=== PATIENT | female | born 1960 | race Two or more races ===

== ENCOUNTER 2016-11-13 15:54 | Emergency (ER) | payer OTHER, MEDICAID ==
[~2016-11-13] VITALS: Ht 167.6 cm; Wt 110.7 kg
[~2016-11-13 15:54] MED LIST: ASPI81CH43 PO; ATOR20TA PO; CARV6.2551 PO; FURO40TA4 PO; GABA-339 PO; GLIM1TAB2 PO; IPRA0.035; LOSA100T27 PO; MECL-87 PO; METF-314 PO; NITR0.4S29 SL; NOR5T PO; POTA10TA51 PO; TRAM50TA2 PO
[2016-11-13 18:24] VITALS: BP 115/88
== END 2016-11-13 19:50 | disposition home or self-care (01) ==
LOC: ER 16:22
DX: S66.912A Strain of unspecified muscle, fascia and tendon at wrist and hand level, left hand, initial encounter (principal); S66.911A Strain of unspecified muscle, fascia and tendon at wrist and hand level, right hand, initial encounter; S00.93XA Contusion of unspecified part of head, initial encounter; S80.02XA Contusion of left knee, initial encounter; S80.01XA Contusion of right knee, initial encounter; I11.0 Hypertensive heart disease with heart failure; I50.9 Heart failure, unspecified; E11.9 Type 2 diabetes mellitus without complications; E78.5 Hyperlipidemia, unspecified; M19.90 Unspecified osteoarthritis, unspecified site; W19.XXXA Unspecified fall, initial encounter; Y93.89 Activity, other specified; Y99.8 Other external cause status; Y92.59 Other trade areas as the place of occurrence of the external cause; Z79.82 Long term (current) use of aspirin; Z79.899 Other long term (current) drug therapy
CPT/HCPCS: 70450

== ENCOUNTER 2017-05-26 12:02 | Emergency (ER) | payer OTHER, MEDICAID ==
[~2017-05-26] VITALS: Ht 165.1 cm; Wt 112.5 kg
[~2017-05-26 12:02] MED LIST changes: +HYDR-4683 PO; -METF-314 PO; +METF-371 PO; -NOR5T PO
[2017-05-26 13:07] LABS: Basophils # (auto) 0.1 uL; Basophils % (auto) 1.4 % (0.0-2.0); Eosinophils # (auto) 0.3 uL; Eosinophils % (auto) 5.4 % (0.0-7.0); Hematocrit 29.9 % (36.0-46.0); Hemoglobin 9.9 g/dL (12.2-16.2); Lymphocytes # (auto) 1.4 uL; Lymphocytes % (auto) 24.2 % (10.0-50.0); Mean Corpuscular Hemoglobin 28.8 pg (28.0-32.0); Mean Corpuscular Hgb Conc. 33.2 g/dL (32.0-36.0); Mean Corpuscular Volume 86.8 fL (80.0-100.0); Monocytes # (auto) 0.5 uL; Monocytes % (auto) 9.4 % (0.0-12.0); Neutrophils # (auto) 3.4 uL; Neutrophils % (auto) 59.6 % (37.0-80.0); Platelet Count (auto) 158 10^3/uL (140-450); Red Blood Cells 3.44 10^6/uL (4.0-5.20); White Blood Cell 5.7 10^3/uL (4.4-10.8)
[2017-05-26 13:38] LABS: Albumin 1.5 g/dL (3.4-5.0); BUN/Creatinine Ratio 24.2; Bilirubin, Total 0.2 mg/dL (0.2-1.0); Calcium 8.1 mg/dL (8.5-10.1); Potassium 4.6 mmol/L (3.5-5.1); Total Protein 5.7 g/dL (6.4-8.2)
[2017-05-26] MEDS ORDERED: CLINDAMYCIN 600MG IV 50 ML IV ONE (16:15)
[2017-05-26] MEDS ORDERED: InsuLIN REG 1unit/0.01ml Soln (100units/ml) IV ONE (16:15)
[2017-05-26] MEDS ORDERED: cloNIDine HCL 0.1 MG TAB PO ONE (16:15)
[2017-05-26 19:45] VITALS: BP 181/101
== END 2017-05-26 21:02 | disposition home or self-care (01) ==
LOC: ER 12:02
DX: S91.302A Unspecified open wound, left foot, initial encounter (principal); I73.9 Peripheral vascular disease, unspecified; E11.22 Type 2 diabetes mellitus with diabetic chronic kidney disease; N18.4 Chronic kidney disease, stage 4 (severe); E11.65 Type 2 diabetes mellitus with hyperglycemia; I13.0 Hypertensive heart and chronic kidney disease with heart failure and stage 1 through stage 4 chronic kidney disease, or unspecified chronic kidney disease; I50.9 Heart failure, unspecified; M19.90 Unspecified osteoarthritis, unspecified site; E78.5 Hyperlipidemia, unspecified; Z90.49 Acquired absence of other specified parts of digestive tract; Z79.4 Long term (current) use of insulin; Z79.82 Long term (current) use of aspirin; I25.10 Atherosclerotic heart disease of native coronary artery without angina pectoris; X58.XXXA Exposure to other specified factors, initial encounter; Y93.89 Activity, other specified; Y92.89 Other specified places as the place of occurrence of the external cause; Y99.8 Other external cause status
CPT/HCPCS: 36415; 73630; 80053; 82962; 85025; 93926; 96365; 96366; 96375; 99285; J1815; J3490; J7030; 96361

== ENCOUNTER → 2023-05-21 | Outpatient (CLI) | payer OTHER, MEDICAID ==
[~2023-05-21] MED LIST changes: +GLIM-38 PO; -GLIM1TAB2 PO; -HYDR-4683 PO; +HYDR-4833 PO; -LOSA100T27 PO; +LOSA100T58 PO; -MECL-87 PO; +MECL1TAB32 PO
== END | disposition home or self-care (01) ==
LOC: RT 11:21
PROVIDERS: ATTEND Internal Medicine Pulmonary Disease
DX: J44.9 Chronic obstructive pulmonary disease, unspecified (principal); R06.00 Dyspnea, unspecified
CPT/HCPCS: 94060; 94727; 94729

== ENCOUNTER 2023-07-06 17:59 | Emergency (ER) | payer OTHER, MEDICAID ==
[~2023-07-06] VITALS: Ht 162.6 cm; Wt 113.5 kg
[2023-07-06 19:03] LABS: Basophils # (auto) 0.1 10 ^3/uL (0-0.2); Basophils % (auto) 0.8 % (0.0-2.0); Eosinophils # (auto) 0.4 10 ^3/uL (0-0.8); Eosinophils % (auto) 5.7 % (0.0-7.0); Hematocrit 35.2 % (36.0-46.0); Hemoglobin 11.1 g/dL (12.2-16.2); Lymphocytes # (auto) 0.9 10 ^3/uL (0.4-5.4); Lymphocytes % (auto) 11.7 % (10.0-50.0); Mean Corpuscular Hemoglobin 30.8 pg (28.0-32.0); Mean Corpuscular Hgb Conc. 31.6 g/dL (32.0-36.0); Mean Corpuscular Volume 97.4 fL (80.0-100.0); Monocytes # (auto) 0.7 10 ^3/uL (0-1.3); Monocytes % (auto) 8.9 % (0.0-12.0); Neutrophils # (auto) 5.4 10 ^3/uL (1.6-8.6); Neutrophils % (auto) 72.9 % (37.0-80.0); Nucleated Red Blood Cells % 0.2 %; Red Blood Cells 3.62 10^6/uL (4.0-5.20); Red Cell Distribution Width 17.3 % (11.8-14.3); White Blood Cell 7.4 10^3/uL (4.4-10.8)
[2023-07-06 19:21] LABS: Alanine Aminotransferase 14 U/L (7-40); Albumin 4.2 g/dL (3.2-4.8); Alkaline Phosphatase 256 U/L (46-116); Anion Gap 9 (5-15); Aspartate Aminotransferase < 8 U/L (13-40); BUN/Creatinine Ratio 5.3 (10.0-20.0); Blood Urea Nitrogen 26 mg/dL (9-23); Calcium 7.7 mg/dL (8.7-10.4); Carbon Dioxide 26 mmol/L (20-30); Chloride 103 mmol/L (98-107); Glucose 127 mg/dL (74-106); Potassium 4.6 mmol/L (3.5-5.1); Sodium 138 mmol/L (136-145)
[2023-07-06 19:22] LABS: Bilirubin, Total 0.3 mg/dL (0.2-1.0); Total Protein 7.1 g/dL (5.7-8.2)
[2023-07-06 20:48] LABS: Erythrocyte Sedimentation Rate 33 mm/hr (0-20)
[2023-07-06] MEDS ORDERED: CEPH250C PO (21:38)
[2023-07-06] MEDS ORDERED: AML5T PO ×2 (21:48)
[2023-07-06 22:37] VITALS: BP 159/69; PULSE 73; RESP 18; TEMP 97.9; O2SAT 96
== END 2023-07-06 22:41 | disposition home or self-care (01) ==
LOC: ER 17:59
DX: S90.122A Contusion of left lesser toe(s) without damage to nail, initial encounter (principal); R23.4 Changes in skin texture; E11.22 Type 2 diabetes mellitus with diabetic chronic kidney disease; I13.2 Hypertensive heart and chronic kidney disease with heart failure and with stage 5 chronic kidney disease, or end stage renal disease; I50.9 Heart failure, unspecified; N18.6 End stage renal disease; E78.5 Hyperlipidemia, unspecified; Z90.49 Acquired absence of other specified parts of digestive tract; X58.XXXA Exposure to other specified factors, initial encounter; Y93.89 Activity, other specified; Y92.89 Other specified places as the place of occurrence of the external cause; Y99.8 Other external cause status
CPT/HCPCS: 36415; 73630; 80053; 83605; 85025; 85652; 86141

== ENCOUNTER 2024-05-27 16:24 | Inpatient (IN) | payer OTHER, MEDICAID ==
[~2024-05-27] VITALS: Ht 162.6 cm; Wt 117.5 kg
[~2024-05-27 16:24] MED LIST changes: +CEPH250C PO; +LOSA-535 PO; -LOSA100T58 PO; +MECL-90 PO; -MECL1TAB32 PO; +POTA-36 PO; -POTA10TA51 PO
[2024-05-27] MEDS: ASPirin 325 MG TAB PO ONE (16:30)
--- NOTE | 2024-05-27 17:07 | ED.PDOC ---
History of Present Illness HPI Comments 63 year old female presents to the ED with chief complaint of generalized weakness. Patient reports that she has been experiencing chest pain since Saturday along with associated symptoms of cough, generalized weakness, and a right index finger infection for the past 2 days. Patient relays that she has missed two days of dialysis on Saturday and Saturday. Patient denies any SOB, dizziness, headache, N/V/D, fever, or chills. Chief Complaint: General Weakness Time Seen by MD: 17:02 Primary Care Provider: unknown Reviewed Notes: Nurses Notes, Substance Abuse Therapist Notes, Medications, Allergies Allergies: Coded Allergies: NO KNOWN ALLERGIES (Unverified , 05/12/12) Home Meds Active Scripts Cephalexin (KEFLEX CAPSULE) 250 Mg Cp, 1 CAP PO QID, #28 CAP Prov:ARIELA ULLOA MD 07/06/23 Reported Medications Tramadol Hcl (Tramadol Hcl) 50 Mg Tab, 50 MG PO DAILY, TAB 10/03/16 Metformin Hydrochloride (Metformin Hcl) 850 Mg Tab, 1 TAB PO DAILY, #60 TAB 5 Refills 10/03/16 Losartan Potassium (Losartan Potassium) 100 Mg Tab, 1 TAB PO DAILY, #30 TAB 5 Refills Decrease to 50mg daily 10/03/16 Hydrocodone-Acetaminophen (Hubbard 5/325MG) 1 Tab Tb, 1 TAB PO DAILY, #90 TAB 10/03/16 Gabapentin (Gabapentin) 600 Mg Tab, 1 TAB PO TID, #90 TAB 3 Refills 10/03/16 Furosemide (Furosemide) 40 Mg Tab, 1 TAB PO DAILY, #30 TAB 5 Refills 10/03/16 Carvedilol (Carvedilol) 6.25 Mg Tab, 1 TAB PO DAILY, #180 TAB 1 Refill 10/03/16 Atorvastatin Calcium (Lipitor) 20 Mg Tab, 1 TAB PO DAILY, #90 TAB 1 Refill 10/03/16 Nitroglycerin (Nitrostat) 0.4 Mg Sub, 0.4 MG SL every 5 minutes PRN PRN for chest pain 05/24/16 Glimepiride (Glimepiride) 1 Mg Tab, 1 TAB PO DAILY, #30 TAB 5 Refills 05/24/16 Potassium Chloride (POTASSIUM CHLORIDE CR) 10 Meq Tb, 1 TAB PO DAILY, #30 TAB 5 Refills 05/24/16 Meclizine Hcl (Meclizine Hcl) 25 Mg Tab, 25 MG PO DAILYP PRN for DIZZINESS, TAB 11/20/13 Ipratropium [place] (Atrovent) 0.03 % Kalyani, 0.03 % NA 11/20/13 Aspirin (Asa) 81 Mg Ch, 81 MG PO DAILY 05/12/12 Information Source: Patient, Emergency Med Personnel Mode of Arrival: EMS Severity: Moderate Timing: Days Duration: Since onset Past Medical History PAST MEDICAL HISTORY: Anemia, Angina, Arthritis, CHF, DM, High Lipids, HTN Surgical History: Cholecystectomy, , Tonsillectomy Surgical History (Other): Rt arm fistula, breast biopsy, kidney biopsy IC DESIGNER STANDARD 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 History: No Pertinent IC DESIGNER STANDARD CELLS History Family History Family History: Unobtainable Social History Smoker: Non-Smoker Alcohol: Denies ETOH Use Drugs: Denies Drug Use Lives In: Home Constitutional: reports: weakness; denies: chills, diaphoresis, fatigue, fever, malaise, sweats, others EENTM: denies: blurred vision, double vision, ear bleeding, ear discharge, ear drainage, ear pain, ear ringing, eye pain, eye redness, hearing loss, mouth pain, mouth swelling, nasal discharge, nose bleeding, nose congestion, nose pain, photophobia, tearing, throat pain, throat swelling, voice changes, others Respiratory: reports: cough; denies: hemoptysis, orthopnea, SOB at rest, shortness of breath, SOB with excertion, stridor, wheezing, others Cardiovascular: reports: chest pain; denies: dizzy spells, diaphoresis, Dyspnea on exertion, edema, irregular heart beat, left arm pain, lightheadedness, palpitations, PND, syncope, others Gastrointestinal: denies: abdomen distended, abdominal pain, blood streaked bowels, constipated, diarrhea, dysphagia, difficulty swallowing, hematemesis, melena, nausea, poor appetite, poor fluid intake, rectal bleeding, rectal pain, vomiting, others Genitourinary: denies: abnormal vagina bleeding, burning, dyspareunia, dysuria, flank pain, frequency, hematuria, incontinence, pain, , vagina discharge, urgency, others Neurological: denies: dizziness, fainting, headache, left sided numbness, left sided weakness, numbness, paresthesia, pre-existing deficit, right sided numbness, right sided weakness, seizure, speech problems, tingling, tremors, weakness, others Musculoskeletal: denies: back pain, gout, joint pain, joint swelling, muscle pain, muscle stiffness, neck pain, others Integumetry: reports: others (Rt index finger redness and swelling); denies: bruises, change in color, change in hair/nails, dryness, laceration, lesions, lumps, rash, wounds Allergic/Immunocompromised: denies: Difficulty Healing, Frequent Infections, Hives, Itching, others Hematologic/Lymphatic: denies: anemia, blood clots, easy bleeding, easy bruising, swollen glands, others Endocrine: denies: excessive hunger, excessive sweating, excessive thirst, excessive urination, flushing, intolerance to cold, intolerance to heat, unexpla ined weight gain, unexplained weight loss, others Psychiatric: denies: anxiety, bipolar disorder, depression, hopeless, panic disorder, schizophrenia, sleepless, suicidal, others All Other Systems: Reviewed and Negative Physical Exam General Appearance: No Apparent Distress, Normal HEENT: Normal ENT Inspection, PERRL/EOMI Neck: Full Range of Motion, Non-Tender, Normal, Normal Inspection Respiratory: Chest Non-Tender, Lungs Clear, No Accessory Muscle Use, No Respiratory Distress, Normal Breath Sounds Cardiovascular: No Edema, No JVD, No Murmur, No Gallop, Normal Peripheral Pulses, Regular Rate/Rhythm Breast Exam: Deferred Gastrointestinal: No Organomegaly, Non Tender, No Pulsatile Mass, Normal Bowel Sounds, Soft Genitalia: Deferred Pelvic: Deferred Rectal: Deferred Extremities: No calf tenderness, Normal capillary refill, Normal inspection, No rmal range of motion, Non-tender, No pedal edema, Other (Rt index finger red and swollen, Rt AV fistula with good breeze and frills.) Musculoskeletal : Apperance: Normal Neurologic: Alert, advertising production manager II-XII nml as Tested, No Motor Deficits, Normal Affect, Normal Mood, No Sensory Deficits Cerebellar Function: Normal Reflexes: Normal Skin: Dry, Normal Color, Warm Lymphatic: No Adenopathy Was a procedure done? Was a procedure done?: No Differential Dx Considerations may include: unstable angina, AMI, pericarditis, pneumonia, PE X-Ray, Labs, Meds, VS Vital Signs Date Time Temp Pulse Resp B/P (MAP) Pulse Ox O2 Delivery O2 Flow Rate FiO2 10/30/24 17:32 71 16 139/61 (87) 97 05/27/24 16:47 98.4 68 20 161/127 (138) 95 Lab Test 05/27/24 18:38 05/27/24 17:44 Range/Units Troponin I High Sensitivity Pending 17 </=34 ng/L White Blood Count 7.5 4.4-10.8 10^3/uL Red Blood Count 3.18 L 4.0-5.20 10^6/uL Hemoglobin 9.8 L 12.2-16.2 g/dL Hematocrit 29.9 L 36.0-46.0 % Mean Corpuscular Volume 93.8 80.0-100.0 fL Mean Corpuscular Hemoglobin 30.8 28.0-32.0 pg Mean Corpuscular Hemoglobin Concent 32.8 32.0-36.0 g/dL Red Cell Distribution Width 15.7 H 11.8-14.3 % Platelet Count 96 L 140-450 10^3/uL Mean Platelet Volume 8.8 6.9-10.8 fL Neutrophils (%) (Auto) 77.8 37.0-80.0 % Lymphocytes (%) (Auto) 8.4 L 10.0-50.0 % Monocytes (%) (Auto) 9.3 0.0-12.0 % Eosinophils (%) (Auto) 3.8 0.0-7.0 % Basophils (%) (Auto) 0.7 0.0-2.0 % Neutrophils # (Auto) 5.8 1.6-8.6 10 ^3/uL Lymphocytes # (Auto) 0.6 0.4-5.4 10 ^3/uL Monocytes # (Auto) 0.7 0-1.3 10 ^3/uL Eosinophils # (Auto) 0.3 0-0.8 10 ^3/uL Basophils # (Auto) 0.1 0-0.2 10 ^3/uL Nucleated Red Blood Cells 0.1 % Platelet Estimate Pending Sodium Level 138 136-145 mmol/L Potassium Level 5.2 H 3.5-5.1 mmol/L Chloride Level 103 98-107 mmol/L Carbon Dioxide Level 26 20-31 mmol/L Anion Gap 9 5-15 Blood Urea Nitrogen 65 H 9-23 mg/dL Creatinine 8.04 H 0.550-1.02 mg/dL Glomerular Filtration Rate Calc 5 >90 mL/min BUN/Creatinine Ratio 8.1 L 10.0-20.0 Serum Glucose 139 H 74-106 mg/dL Calcium Level 7.5 L 8.7-10.4 mg/dL B-Type Natriuretic Peptide 483.63 0-100 pg/mL Current Medications Medications (Trade) Dose Ordered Sig/Mirna Route Start Time Stop Time Status Last Admin Aspirin 325 mg ONCE ONCE PO 05/27/24 16:30 05/27/24 16:31 DC 05/27/24 16:30 Chest XR: FINDINGS: Lines and Tubes: None Lungs: Increased pulmonary vascular congestion and or interstitial disease is noted diffusely throughout both lung reyes. Pleura: No effusion. No pneumothorax. Cardiomediastinal contours: Is enlarged. Bones: No acute osseous abnormality. IMPRESSION: 1. Cardiomegaly with pulmonary findings either consistent with chronic pulmonary disease or congestive failure. There are no prior studies for comparison Images Reviewed?: Images reviewed and evaluated by me Time of 1ST Reevaluation: 18:02 Reevaluation 1ST: Unchanged Time of 2ND Reevaluation: 19:22 Reevaluation 2ND: Improved Patient Education/Counseling: Diagnosis, Treatment Family Education/Counseling: No Family Present Additional Information pt has multiple cardiac risk factors and has been having chest pain, which is worrisome for unstable angina. so far, there are no indications of a CT. pt also missed 2 of her HD sessions. we will admit her for unstable angina and consult nephro to provide routine HD. in addition, she has an infection of the right index finger. she received rocephin. Departure 1 Departure Time of Disposition: 19:26 Impression: Primary Impression: Unstable angina Additional Impressions: Chronic kidney failure Qualified Codes: N18.5 - Chronic kidney disease, stage 5 Dactylitis of finger Disposition: ADMITTED INPATIENT Admit to: Tele Condition: Stable Critical Care Note Critical Care Time?: Yes (55 min-critical care time only) Critical care comment: due to concerns for patient's condition with acute deterioration, causing life and limb threatening states, the care required my highest level of attention. i assessed the patient, ordered the proper tests, reassessed the response to treatments, communicated with medical personnel, formulated a plan of care and disposition. total time include at least 50% face-face interactions and does not include any procedures Stability Stability form required: No Heart Score Heart Score: Heart Score Response (Comments) Value History Highly Suspicious 2 EKG Repolarization Disturb 1 Age 45-64 1 Risk Factors >3 or Hx ASHD 2 Troponin Normal limit 0 Total 6 I personally scribed for DELANO HARTLEY MD ([email or web address]) on 05/27/24 at 17:07. Electronically submitted by Edgar Geiger ([email or web address]). I personally scribed for DELANO HARTLEY MD ([email or web address]) on 05/27/24 at 17:18. Electronically submitted by Edgar Geiger ([email or web address]). DELANO HARTLEY MD May 27, 2024 17:07
--- NOTE | 2024-05-27 17:15 | DVH ---
CHEST RADIOGRAPH Indication:cp Technique: Single frontal view of the chest was obtained Comparison: None FINDINGS: Lines and Tubes: None Lungs: Increased pulmonary vascular congestion and or interstitial disease is noted diffusely through out both lung reyes. Pleura: No effusion. No pneumothorax. Cardiomediastinal contours: Is enlarged. Bones: No acute osseous abnormality. IMPRESSION: 1. Cardiomegaly with pulmonary findings either consistent with chronic pulmonary disease or congestiv e failure. There are no prior studies for comparison
[2024-05-27 17:50] VITALS: O2SAT 97
[2024-05-27 18:18] LABS: Basophils # (auto) 0.1 10 ^3/uL (0-0.2); Basophils % (auto) 0.7 % (0.0-2.0); Eosinophils # (auto) 0.3 10 ^3/uL (0-0.8); Eosinophils % (auto) 3.8 % (0.0-7.0); Hematocrit 29.9 % (36.0-46.0); Hemoglobin 9.8 g/dL (12.2-16.2); Lymphocytes # (auto) 0.6 10 ^3/uL (0.4-5.4); Lymphocytes % (auto) 8.4 % (10.0-50.0); Mean Corpuscular Hemoglobin 30.8 pg (28.0-32.0); Mean Corpuscular Hgb Conc. 32.8 g/dL (32.0-36.0); Mean Corpuscular Volume 93.8 fL (80.0-100.0); Monocytes # (auto) 0.7 10 ^3/uL (0-1.3); Monocytes % (auto) 9.3 % (0.0-12.0); Neutrophils # (auto) 5.8 10 ^3/uL (1.6-8.6); Neutrophils % (auto) 77.8 % (37.0-80.0); Nucleated Red Blood Cells % 0.1 %; Platelet Count (auto) 96 10^3/uL (140-450); Red Blood Cells 3.18 10^6/uL (4.0-5.20); Red Cell Distribution Width 15.7 % (11.8-14.3); White Blood Cell 7.5 10^3/uL (4.4-10.8)
[2024-05-27 18:26] LABS: Anion Gap 9 (5-15); Carbon Dioxide 26 mmol/L (20-31); Chloride 103 mmol/L (98-107); Potassium 5.2 mmol/L (3.5-5.1); Sodium 138 mmol/L (136-145)
[2024-05-27 18:27] LABS: Calcium 7.5 mg/dL (8.7-10.4)
[2024-05-27 18:31] LABS: Glucose 139 mg/dL (74-106)
[2024-05-27 18:32] LABS: BUN/Creatinine Ratio 8.1 (10.0-20.0); Blood Urea Nitrogen 65 mg/dL (9-23)
[2024-05-27] MEDS: cefTRIAXone 1GM/50ML D5W 50 ML IV ONE (19:30)
[2024-05-27 19:33] LABS: Large Platelets FEW; Platelet Estimate Decreased
[2024-05-27 21:50] LABS: COVID19 ANTIGEN SOFIA FIA NEGATIVE (NEGATIVE); Rapid Influenza A Negative (Negative); Rapid Influenza B Negative (Negative)
[2024-05-27] MEDS ORDERED: NITROGLYCERIN 0.4 MG SL TAB SL PRN (22:15)
[2024-05-27] MEDS ORDERED: ACETAMINOPHEN 325 MG TAB PO PRN (22:15)
[2024-05-27] MEDS ORDERED: MORPHINE SULFATE INJ 2 MG/ml SYRG IV PRN (22:15)
[2024-05-27] MEDS: InsuLIN REG 1unit/0.01ml Soln (100units/ml) IV ONE (22:30)
[2024-05-27] MEDS: SODIUM BICARB 8.4% 50Meq/50ml SYR INJ IV ONE (22:30)
[2024-05-27] MEDS: FUROSEMIDE 20 MG/2 ML VIAL IV ONE (22:30)
[2024-05-27] MEDS: DEXTROSE (50%) 50ML SYRG IV ONE (22:30)
--- NOTE | 2024-05-27 22:42 | DVHHPRES ---
History of Present Illness Resident Creating Document: LYUBOV NINA RESIDENT History of Present Illness This is a 63 years old female with past medical history of hypertension, COPD on home oxygen 3 L, ESRD on hemodialysis 3 times a week, CHF, atrial fibrillation on Eliquis, type 2 diabetes mellitus, rheumatoid arthritis, osteoporosis, chronic back pain presented to the ED with the complaints of generalized weakness, chest pain and shortness of breath for last 3 days prior to this admission. According to the patient the chest pain is localized the central part of the chest ,sharp in nature 05/07 and associated with shortness of breath but denies cough, dizziness, diaphoresis, abdominal pain, or any change in bowel and bladder habit. Patient also complains pain swelling and redness of the left index finger for last 3 days. Patient states that she has missed two days of dialysis on Saturday and Saturday. PCP: [employer] Clerk: Dr. Whitney Lpn Private Duty: Dr. Ren in [facility] dialysis Hat Brusher Machine: Dr. Ismael Funk Review of Systems Constitutional: Yes: Weakness; No: Fever, Chills, Sweats, Malaise, Other Eyes: No: Pain, Vision change, Conjunctivae inflammation, Eyelid inflammation, Other, Redness ENT: No: Ear pain, Ear discharge, Nose pain, Nose discharge, Nose congestion, Mouth pain, Mouth swelling, Throat pain, Throat swelling, Other Respiratory: Shortness of breath, SOB with excertion; No: Cough, Dry, Wheezing, Hemoptysis, Pleuritic Pain, Sputum, Wheezing, Other Cardiovascular: Chest Pain; No: Palpitations, Orthopnea, Paroxysmal Noc. Dyspnea, Edema, Lt Headedness, Other Gastrointestinal: Nausea; No: Vomiting, Abdominal Pain, Diarrhea, Constipation, Melena, Hematochezia, Other Genitourinary: No Dysuria, No Frequency, No Incontinence, No Hematuria, No Retention, No Other Musculoskeletal: No: other, neck pain, shoulder pain, arm pain, back pain, hand pain, leg pain, foot pain Skin: Rash; No: Lesions, Jaundice, Bruising, Other Neurological: No: Weakness, Numbness, Incoordination, Change in speech, Confusion, Seizures, Other Allergies: Coded Allergies: NO KNOWN ALLERGIES (Unverified , 05/12/12) Medications Current Medications Medications Dose Ordered Sig/Mirna Route Start Time Stop Time Status Last Admin Dose Admin Sodium Chloride 10 ml Q8HR IV 05/28/24 06:00 Acetaminophen 325 mg Q4HP PRN PO 05/27/24 22:15 Acetaminophen/ Hydrocodone Bitart 1 tab Q4HP PRN PO 05/27/24 22:15 Ondansetron HCl 4 mg Q4HP PRN IV 05/27/24 22:15 Nitroglycerin 0.4 mg Q5MINP PRN SL 05/27/24 22:15 Morphine Sulfate 2 mg Q30M PRN IV 05/27/24 22:15 Zirconium Oxide 10 gm TID PO 05/28/24 06:00 05/29/24 22:01 Aspirin 81 mg DAILY PO 05/28/24 10:00 Atorvastatin Calcium 20 mg DAILY PO 05/28/24 10:00 Carvedilol 6.25 mg BIDWM PO 05/28/24 08:00 Patient Own Medication 1 tab DAILY PO 05/28/24 10:00 UNV Furosemide 40 mg DAILY IV 05/28/24 10:00 Albuterol 2.5 mg Q4HR NEB 05/28/24 02:00 Ipratropium [place] 0.5 mg Q4HR NEB 05/28/24 02:00 Exam Vital Signs Vital Signs Date Time Temp Pulse Resp B/P (MAP) Pulse Ox O2 Delivery O2 Flow Rate FiO2 05/27/24 20:07 98.9 71 14 150/60 (90) 98 98.9 05/27/24 17:50 Nasal Cannula* 3 32 General Appearance: Alert, Oriented X3, Cooperative, mild distress HEENT: Atraumatic, PERRLA, EOMI, Mucous membr. moist/pink Respiratory: Other (Bilateral mild crackles in both lung field) Cardiovascular: Regular rate, Normal S1, Normal S2, No murmurs, Other Abdominal: Normal bowel sounds, Soft, No tenderness, No hepatospenomegaly Extremities: No clubbing, No cyanosis, Normal pulses, No tenderness/swelling, Other (Bilateral 1+ pedal edema, stasis dermatitis, erythema and swelling of the left index finger) Skin: No rashes, No breakdown, No significant lesion Neuro: Normal speech, Strength at 5/5 X4 ext, Normal tone, Sensation intact Psych/Mental Status: Mental status NL, Mood NL Labs/Xrays Labs Test 05/27/24 20:46 05/27/24 18:38 05/27/24 18:34 05/27/24 17:44 Range/Units Influenza Type A Antigen Negative Negative Influenza Type B Antigen Negative Negative SARS-CoV-2 Antigen (Rapid) Negative NEGATIVE Troponin I High Sensitivity 17 </=34 ng/L White Blood Count 7.5 4.4-10.8 10^3/uL Red Blood Count 3.18 L 4.0-5.20 10^6/uL Hemoglobin 9.8 L 12.2-16.2 g/dL Hematocrit 29.9 L 36.0-46.0 % Mean Corpuscular Volume 93.8 80.0-100.0 fL Mean Corpuscular Hemoglobin 30.8 28.0-32.0 pg Mean Corpuscular Hemoglobin Concent 32.8 32.0-36.0 g/dL Red Cell Distribution Width 15.7 H 11.8-14.3 % Platelet Count 96 L 140-450 10^3/uL Mean Platelet Volume 8.8 6.9-10.8 fL Neutrophils (%) (Auto) 77.8 37.0-80.0 % Lymphocytes (%) (Auto) 8.4 L 10.0-50.0 % Monocytes (%) (Auto) 9.3 0.0-12.0 % Eosinophils (%) (Auto) 3.8 0.0-7.0 % Basophils (%) (Auto) 0.7 0.0-2.0 % Neutrophils # (Auto) 5.8 1.6-8.6 10 ^3/uL Lymphocytes # (Auto) 0.6 0.4-5.4 10 ^3/uL Monocytes # (Auto) 0.7 0-1.3 10 ^3/uL Eosinophils # (Auto) 0.3 0-0.8 10 ^3/uL Basophils # (Auto) 0.1 0-0.2 10 ^3/uL Nucleated Red Blood Cells 0.1 % Platelet Estimate Decreased Large Platelets Few Sodium Level 138 136-145 mmol/L Potassium Level 5.2 H 3.5-5.1 mmol/L Chloride Level 103 98-107 mmol/L Carbon Dioxide Level 26 20-31 mmol/L Anion Gap 9 5-15 Blood Urea Nitrogen 65 H 9-23 mg/dL Creatinine 8.04 H 0.550-1.02 mg/dL Glomerular Filtration Rate Calc 5 >90 mL/min BUN/Creatinine Ratio 8.1 L 10.0-20.0 Serum Glucose 139 H 74-106 mg/dL Calcium Level 7.5 L 8.7-10.4 mg/dL B-Type Natriuretic Peptide 483.63 0-100 pg/mL Assessment/Plan Assessment/Plan Assessment and plan: # Acute on chronic hypoxic respiratory failure likely due to acute exacerbation of CHF - Patient is on 4 L oxygen with saturation 94%. # Acute exacerbation of CHF - x-ray revealed cardiomegaly with pulmonary vascular congestion - BNP is elevated - Lasix 40 mg IV daily - Continue carvedilol 6.25 mg b.i.d. - Ordered echo # History of paroxysmal atrial fibrillation with secondary hypercoagulable state - [id number] score 4 - Lovenox 70 mg SC daily ( GFR<10) # Possible cellulitis of the left index finger - CT of the left hand revealed mild soft tissue edema /inflammatory changes involving the 2nd digit. - IV ceftriaxone 1 g daily and IV vancomycin as per pharmacy # ESRD on hemodialysis 3 times a week - missed last 2 dialysis in Saturday and Saturday - consulted nephrology # Hyperkalemia - Hyperkalemia protocol management - Lokelma 10 mg p.o. t.i.d. # Chronic COPD on home oxygen 3 L - med neb treatment with albuterol and ipratropium q.4 p.r.n. # Type 2 diabetes mellitus, hemoglobin A1c 6.1 - Mild sliding scale of insulin # Vitamin D deficiency - Vitamin D 67412 units Q 7D # History of coronary artery disease - Aspirin 81 mg daily and atorvastatin 20 mg at HS Goal of care discussed with the patient for more than 20 minutes full code Plan of treatment discussed with Dr. Marinelli Plan discussed with: Patient, Other My Orders Orders - LYUBOV NINA RESIDENT Procedure Category Date Status Time Admit ADMIT 05/27/24 Transmitted 22:12 Allergies DARRYL 05/27/24 In Process 22:12 Code Status CODE 05/27/24 Transmitted 22:12 Renal DIET 05/28/24 Transmitted Standard(2gna,3gk,Lopho) Breakfast Sodium Chloride Lock PHA 05/28/24 In Process (Saline Lock Ns) 06:00 Oxygen Per Hour RT 05/27/24 Transmitted 22:12 Acetaminophen Tablet PHA 05/27/24 In Process (Tylenol Tablet) 22:15 Hydrocodone-Acet PHA 05/27/24 In Process 5/325mg Tab ([place] 22:15 Ondansetron Hcl PHA 05/27/24 In Process (Zofran) 22:15 Fall Risk Precautions DARRYL 05/27/[address] 22:12 Complete Blood Count LAB 05/28/24 Verified 04:00 Comprehensive LAB 05/28/24 Verified Metabolic Panel 04:00 Echo 2d Mode Cardiac US 05/27/24 Logged DOP 22:12 Nitroglycerin PHA 05/27/24 In Process Sublingual (Ntrostat 22:15 Morphine Sulfate PHA 05/27/24 In Process Injection 22:15 Oxygen By Nasal RT 05/27/24 Transmitted Cannula 22:12 Stat Ekg For Chest DARRYL 05/27/24 In Process Pain 22:12 Notify Of Changes DARRYL 05/27/24 In Process From Base 22:12 Insulation Worker For DARRYL 05/27/24 In Process 24 Hours 22:12 Emergency Dysrhythmia DARRYL 05/27/24 In Process Protocol 22:12 Rhythm Strips Once DARRYL 05/27/24 In Process Every Shift 22:12 Sodium Zirconium PHA 05/28/24 In Process Cyclosilicate 06:00 Thyroid Stimulating LAB 05/27/24 In Process Hormone 22:21 Urinalysis LAB 05/27/24 Logged 22:21 Drug Screen LAB 05/27/24 Logged 22:21 Aspirin Tablet PHA 05/28/24 In Process 10:00 Atorvastatin (Lipitor) PHA 05/28/24 In Process 10:00 Carvedilol Tablet PHA 05/28/24 In Process (Coreg Tablet) 08:00 (Nf) Losartan PHA 05/28/24 Logged Potassium 10:00 Furosemide Injection PHA 05/28/24 In Process (Lasix Injection) 10:00 Albuterol Medneb PHA 05/28/24 In Process (Ventolin Medneb) 02:00 Ipratropium Medneb PHA 05/28/24 In Process (Atrovent Medneb) 02:00 Ct R Hand Wo Contrast CT 05/27/24 Logged 22:17 PTPTT LAB 05/27/24 Verified 22:36 Thyroid Stimulating LAB 05/27/24 Verified Hormone 22:36 Hemoglobin A1c LAB 05/27/24 Verified 22:36 Vitamin B12 LAB 05/27/24 Verified 22:36 Vitamin D, 25-Hydroxy LAB 05/27/24 Verified 22:36 Enoxaparin Sodium PHA 05/28/24 Verified (Lovenox) 10:00 Ceftriaxone Ivpb PHA 05/28/24 Verified Rocephin 09:00 Vancomycin Per PHA 05/27/24 Verified Pharmacy 22:45 Date of Service: May 27, 2024 Billing Provider: JACQUELYN MARINELLI MD Common Visit Codes: [id number] INP/OBS CARE (HIGH) LYUBOV NINA RESIDENT May 27, 2024 22:41 JACQUELYN MARINELLI MD May 28, 2024 09:06
[2024-05-27] MEDS: ALBUTEROL SULF 2.5 MG/0.5ML(0.5%) NEB SOLN ONE (22:43)
[2024-05-27] MEDS: ALBUTEROL SULF 2.5 MG/0.5ML(0.5%) NEB SOLN NEB ONE (22:43)
[2024-05-27] MEDS ORDERED: VANCOMYCIN PER PHARMACY 0 MG IV SCH (22:45)
[2024-05-27] MEDS: VANCOMYCIN 1GM/200ML PREMIX 200 ML IV ONE (23:00)
[2024-05-27 23:06] VITALS: BP 150/60; PULSE 70; RESP 20; O2SAT 96
--- NOTE | 2024-05-27 23:32 | DVH ---
EXAM: CT CT R HAND WO CONTRAST HISTORY: Redness and swelling of the RIGHT index finger COMPARISON: None TECHNIQUE: Axial images were obtained of the right hand and reformatted in coronal and sagittal plane s. All CT scans at this medical facility are performed using dose modulation techniques as appropriate t o a performed exam including the following: Automated exposure control was utilized; adjustment of th e MA and/or KV according to patient size; and use of iterative reconstruction technique. CT Dose: CTDI volume is 8 mGy. Dose-length product is 174 mGy*cm Findings/ IMPRESSION: No acute fracture or dislocation. No destructive osseous lesions. No significant degenerative changes . Mild soft tissue edema /inflammatory changes involving the 2nd digit.
[2024-05-27 23:45] LABS: INR 1.06 (0.9-1.15); Partial Thromboplastin Time 35.7 SEC (24.5-34.5); Prothrombin Time 11.2 sec (9.3-11.8)
[2024-05-28] VITALS (21 sets, daily range): BP systolic 137–179; BP diastolic 55–66; PULSE 63–90; RESP 17–20; TEMP 97.5–98.5; O2SAT 90–100
[2024-05-28] MEDS: IPRATROPIUM BROM 0.5 MG/2.5ML INH SOL NEB SCH (01:37)
[2024-05-28] MEDS: ALBUTEROL SULF 2.5 MG/0.5ML(0.5%) NEB SOLN NEB SCH (01:37)
[2024-05-28] MEDS: HYDROcodone-ACET 5/325MG TAB PO PRN (02:41)
[2024-05-28] MEDS: ERGOCALCIFEROL 50,000 UNIT(1.25MG) CAP PO SCH (03:30)
[2024-05-28] MEDS ORDERED: DEXTROSE (50%) 50ML SYRG IV PRN (03:30)
[2024-05-28] MEDS: SODIUM CHLOR 0.9% PF (SALINE LOCK) 10ML VIAL/SYR IV SCH (06:37)
[2024-05-28] MEDS: SODIUM ZIRCONIUM CYCL 10 GM PAK PO SCH (06:38)
[2024-05-28] MEDS: InsuLIN REG 1unit/0.01ml Soln (100units/ml) SC SCH (06:46)
[2024-05-28] MEDS: ACCU-CHEK COMFORT CURVE STRIP VI SCH (06:47)
--- NOTE | 2024-05-28 09:32 | DVHPNRES ---
Progress Note Date Seen: May 28, 2024 Resident Creating Document: PATRICIA JARAMILLO RESIDENT Medical Necessity Reason Pt with a Central, PICC or Fol: No Subjective Review of Systems Patient is 63 years old female with past medical history not limited to COPD on home oxygen [place] O2 3-4 liter/minute, ESRD on hemodialysis 3 times per week, Saturday, Saturday and Saturday, congestive heart failure, hypertension, paroxysmal atrial fibrillation on Eliquis, diabetes mellitus type 2, hypertension, rheumatoid arthritis, osteoporosis, chronic back pain came with a complaint of chest pain and shortness of breaths for 3 days. Patient patient woke up from sleep 3 days before and feeling weak and tired. She started having chest pain, central in nature, sharp, pressure-like, 10/10, radiating to the back at times, pain was intermittent in nature. Patient also had short of breath for the same duration which increased with exertion, relieved with rest and hemodialysis. Patient also endorsed feeling generalized weakness and wheezing for last 1 week. As per patient's patient's legs are chronically swollen. Patient also endorsed swelling of the right index finger that started 3-4 days back, painful, tender to touch. Per patient she missed her dialysis on last Saturday and Saturday as she was not feeling good, feeling tired. Patient denied any fever, palpitation, dizziness, change in vision, diarrhea. PMH-COPD on home oxygen [place] O2 3-4 liter/minute, ESRD on hemodialysis 3 times per week, Saturday, Saturday and Saturday, congestive heart failure, hypertension, paroxysmal atrial fibrillation on Eliquis, diabetes mellitus type 2, hypertension, rheumatoid arthritis, osteoporosis, chronic back pain PSH- cholecystectomy, tonsillectomy Allergy- NKDA Personal History/ Social History- lives with daughter and mom, nonalcoholic, nonsmoker, no drug abuser as per patient Patient was seen today at the bedside. Patient feeling better today Cardiovascular- deny palpitation Respiratory- denies cough Gastrointestinal- denies any rectal bleeding, nausea or vomiting Musculoskeletal-denies acute joint swelling or tenderness or redness Neurological- denies acute dysarthria, dysphagia, change in vision Psychiatry- denies depression or SI or HI Skin- denies acute rash or purpura Objective vital signs Vital Sign Date Time Temp Pulse Resp B/P (MAP) Pulse Ox O2 Delivery O2 Flow Rate FiO2 05/28/24 06:52 71 20 100 05/28/24 06:46 Nasal Cannula* 4 36 05/28/24 05:00 98.5 148/63 (91) 98.5 Total Intake and Output 05/27/24 05/27/24 05/28/24 15:00 23:00 07:00 Intake Total 300 ml Balance 300 ml medications Current Medications Medications Dose Ordered Sig/Mirna Route Start Time Stop Time Status Last Admin Dose Admin Sodium Chloride 10 ml Q8HR IV 05/28/24 06:00 05/28/24 06:37 10 ML Acetaminophen 325 mg Q4HP PRN PO 05/27/24 22:15 Acetaminophen/ Hydrocodone Bitart 1 tab Q4HP PRN PO 05/27/24 22:15 05/28/24 02:41 1 TAB Ondansetron HCl 4 mg Q4HP PRN IV 05/27/24 22:15 Nitroglycerin 0.4 mg Q5MINP PRN SL 05/27/24 22:15 Morphine Sulfate 2 mg Q30M PRN IV 05/27/24 22:15 Zirconium Oxide 10 gm TID PO 05/28/24 06:00 05/29/24 22:01 05/28/24 06:38 10 GM Aspirin 81 mg DAILY PO 05/28/24 10:00 Atorvastatin Calcium 20 mg DAILY PO 05/28/24 10:00 Carvedilol 6.25 mg BIDWM PO 05/28/24 08:00 Patient Own Medication 1 tab DAILY PO 05/28/24 10:00 Future Hold Furosemide 40 mg DAILY IV 05/28/24 10:00 Albuterol 2.5 mg Q4HR NEB 05/28/24 02:00 05/28/24 06:46 2.5 MG Ipratropium [place] 0.5 mg Q4HR NEB 05/28/24 02:00 05/28/24 06:46 0.5 MG Enoxaparin Sodium 70 mg DAILY SC 05/28/24 10:00 Future Hold Ceftriaxone Sodium 50 ml @ 100 mls/hr DAILY@09 IV 05/28/24 09:00 Vancomycin HCl 0 ml @ 0 mls/hr UD IV 05/27/24 22:45 Diagnostic Test (Pha) 1 strip ACHS 05/28/24 07:00 05/28/24 06:47 1 STRIP Insulin Human Regular ACHS SC 05/28/24 07:00 Dextrose 50 ml UD PRN IV 05/28/24 03:30 Ergocalciferol 50,000 unit Q7D PO 05/28/24 03:30 Examination General examination- awake alert, , conversant HEENT- PEERLA, no acute nasal discharge Cardiovascular- S1-S2 audible, rate and rhythm regular, no murmur Respiratory-bilateral lung crackles++ Gastrointestinal-nontender, bowel sound+. Nondistended Musculoskeletal-no acute joint swelling or tenderness or redness upper extremity and Lower extremity- edema+, lower extremity lactulose skin, bilateral lower extremity afebrile pulse. Right index finger red, swollen, tender, redness spreading to the dorsum of the right hand Neurological- cranial nerves intact, no acute dysarthria or dysphagia Psychiatry- denies depression or SI or HI Skin- no acute rash or purpura laboratory and microbiology Laboratory Tests 05/27/24 17:44 Test 05/27/24 17:44 Range/Units Serum Glucose 139 H 74-106 mg/dL Problem List/Assessment/Plan Problem List/Assessment/Plan #Acute on chronic hypoxic respiratory failure likely due to acute on chronic heart failure/acute exacerbation of COPD/fluid overload due to ESRD - CXR- Cardiomegaly with pulmonary findings either consistent with chronic pulmonary disease or congestive failure. -please continue with [place] O2 to maintain SpO2 more than 90% -continue nebulization as prescribed -continue ceftriaxone 1 g iv daily -continue IV vancomycin as per pharmacy protocol -strict intake output chart -avoid nephrotoxic drugs -nephrology consult and hemodialysis as per Nephrology recommendation #Acute exacerbation of COPD/fluid overload due to ESRD - Cardiomegaly with pulmonary findings either consistent with chronic pulmonary disease or congestive failure. -please continue with NC O2 to maintain SpO2 more than 90% -continue nebulization as prescribed -continue ceftriaxone 1 g iv daily -continue IV vancomycin as per pharmacy protocol -strict intake output chart -avoid nephrotoxic drugs -nephrology consult and hemodialysis as per Nephrology recommendation #Pulmonary edema likely due to ESRD, patient missed last 2 hemodialysis - Cardiomegaly with pulmonary findings either consistent with chronic pulmonary disease or congestive failure. -ordered nephrology consult -avoid nephrotoxic drugs #Cellulitis of the right index finger staining to the dorsum of hand -CT head and- Mild soft tissue edema /inflammatory changes involving the 2nd digit. -continue ceftriaxone 1 g IV daily -continue vancomycin as per pharmacy # Acute exacerbation of CHF - x-ray revealed cardiomegaly with pulmonary vascular congestion - BNP is elevated - Lasix 40 mg IV daily - Continue carvedilol 6.25 mg b.i.d. - Ordered echo #Bilateral leg edema likely due to ESRD/CHF -duplex arterial study of the lower extremity negative for significant stenosis -continue hemodialysis as recommended # History of paroxysmal atrial fibrillation with secondary hypercoagulable state - [id number] score 4 - continue Eliquis 5 mg p.o. b.i.d. except hold it for dialysis until after. # Hyperkalemia - Hyperkalemia protocol management - Lokelma 10 mg p.o. t.i.d. #Hyperphosphatemia - serum phos 7.4 - patient is started on sevelamer 800 mg p.o. t.i.d. # Type 2 diabetes mellitus, hemoglobin A1c 6.1 - Mild sliding scale of insulin # Vitamin D deficiency - Vitamin D 61971 units Q 7D # History of coronary artery disease - Aspirin 81 mg daily and atorvastatin 20 mg at HS # ESRD on hemodialysis -- missed last 2 dialysis in Saturday and Saturday -nephrology recommendation reviewed and appreciated. -as per patient patient gets hemodialysis on Saturday, Saturday, Saturday. -avoid nephrotoxic drugs Goals of care/advance care planning; FULL CODE; discussed with the patient PUD prophylaxis: Pantoprazole DVT prophylaxis: On Eliquis Plan discussed with Dr. Chase,,, nursing staff, patient Total time spent on patient evaluation, chart review, assessment and plan, discussion discussion >20 minutes Plan discussed with: Patient Plan discussed with: Patient, Other (RN) My Orders My Orders Orders - PATRICIA JARAMILLO Procedure Category Date Status Time Blood Culture DWAINE 05/28/24 Uncollected 08:36 Complete Blood Count LAB 05/28/24 Logged 08:37 Comprehensive LAB 05/28/24 Logged Metabolic Panel 08:37 Date of Service: May 28, 2024 Billing Provider: RADHA CHASE MD Common Visit Codes: 83454-[id number] INP/OBS CARE(HIGH) Secondary Visit Codes: 64499-[id number] CARE PLAN 30 MINUTES PATRICIA JARAMILLO May 28, 2024 09:32 RADHA CHASE MD May 29, 2024 20:24
[2024-05-28] MEDS: ATORVASTATIN 20 MG TAB PO SCH (09:53)
[2024-05-28] MEDS: CARVEDILOL 3.125 MG TAB PO SCH (09:56)
[2024-05-28] MEDS: ASPirin 81 mg TAB PO SCH (09:57)
[2024-05-28] MEDS: cefTRIAXone 1GM/50ML D5W 50 ML IV SCH (09:58)
[2024-05-28 10:00] LABS: Basophils # (auto) 0.1 10 ^3/uL (0-0.2); Basophils % (auto) 0.7 % (0.0-2.0); Eosinophils # (auto) 0.3 10 ^3/uL (0-0.8); Eosinophils % (auto) 4.8 % (0.0-7.0); Hematocrit 30.8 % (36.0-46.0); Hemoglobin 9.8 g/dL (12.2-16.2); Lymphocytes # (auto) 0.5 10 ^3/uL (0.4-5.4); Lymphocytes % (auto) 6.5 % (10.0-50.0); Mean Corpuscular Hemoglobin 29.7 pg (28.0-32.0); Mean Corpuscular Hgb Conc. 31.6 g/dL (32.0-36.0); Monocytes # (auto) 0.7 10 ^3/uL (0-1.3); Monocytes % (auto) 9.4 % (0.0-12.0); Neutrophils # (auto) 5.6 10 ^3/uL (1.6-8.6); Neutrophils % (auto) 78.6 % (37.0-80.0); Platelet Count (auto) 90 10^3/uL (140-450); Red Blood Cells 3.28 10^6/uL (4.0-5.20); Red Cell Distribution Width 15.4 % (11.8-14.3); White Blood Cell 7.2 10^3/uL (4.4-10.8)
[2024-05-28] MEDS: FUROSEMIDE 40 MG/4 ML VIAL IV SCH (10:00)
[2024-05-28] MEDS ORDERED: ENOXAPARIN SOD 80 MG/0.8ML SYRINGE SC SCH (10:00)
[2024-05-28 10:14] LABS: Alanine Aminotransferase 10 U/L (7-40); Alkaline Phosphatase 171 U/L (46-116); Anion Gap 13 (5-15); Aspartate Aminotransferase < 8 U/L (13-40); BUN/Creatinine Ratio 7.8 (10.0-20.0); Blood Urea Nitrogen 65 mg/dL (9-23); Calcium 7.6 mg/dL (8.7-10.4); Carbon Dioxide 24 mmol/L (20-31); Chloride 102 mmol/L (98-107); Glucose 171 mg/dL (74-106); Magnesium 2.5 mg/dL (1.6-2.6); Potassium 5.3 mmol/L (3.5-5.1); Sodium 139 mmol/L (136-145)
[2024-05-28 10:15] LABS: Albumin 3.8 g/dL (3.2-4.8); Bilirubin, Total 0.2 mg/dL (0.2-1.0); Phosphorus 7.4 mg/dL (2.4-5.1); Total Protein 6.8 g/dL (5.7-8.2)
--- NOTE | 2024-05-28 11:16 | DVHCONRES ---
Date Seen: May 28, 2024 Resident Creating Document: JHAJJ,SARPUNEET RESIDENT Referring Physician ANDREW Steinberg Reason for Consultation ESRD on hemodialysis History of Present Illness Patient is a 63-year-old female with a past medical history of hypertension, COPD on home oxygen 3-5 L, ESRD on hemodialysis MWF, congestive heart failure, atrial fibrillation on Eliquis, type 2 DM TS mellitus, rheumatoid arthritis, osteoporosis presented to the ED with a chief complaint of chest pain for 3 days prior to admission. Patient reported that she was scheduled dialysis on Saturday and Saturday and started feeling shortness of breath and chest pain localized substernal, sharp and severe in intensity who, patient reported associated shortness of breath and orthopnea. Patient denied cough dizziness, diaphoresis, abdominal pain, any change in bowel and bladder habit. Patient also reported pain in the right hand with redness of the right index finger for the last 3 days. 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 History of 15 pack year smoking Allergies: Coded Allergies: NO KNOWN ALLERGIES (Unverified , 05/12/12) Home Meds Active Scripts Cephalexin (KEFLEX CAPSULE) 250 Mg Cp, 1 CAP PO QID, #28 CAP Prov:ARIELA ULLOA MD 07/06/23 Reported Medications Tramadol Hcl (Tramadol Hcl) 50 Mg Tab, 50 MG PO DAILY, TAB 10/03/16 Metformin Hydrochloride (Metformin Hcl) 850 Mg Tab, 1 TAB PO DAILY, #60 TAB 5 Refills 10/03/16 Losartan Potassium (Losartan Potassium) 100 Mg Tab, 1 TAB PO DAILY, #30 TAB 5 Refills Decrease to 50mg daily 10/03/16 Hydrocodone-Acetaminophen ([place] 5/325MG) 1 Tab Tb, 1 TAB PO DAILY, #90 TAB 10/03/16 Gabapentin (Gabapentin) 600 Mg Tab, 1 TAB PO TID, #90 TAB 3 Refills 10/03/16 Furosemide (Furosemide) 40 Mg Tab, 1 TAB PO DAILY, #30 TAB 5 Refills 10/03/16 Carvedilol (Carvedilol) 6.25 Mg Tab, 1 TAB PO DAILY, #180 TAB 1 Refill 10/03/16 Atorvastatin Calcium (Lipitor) 20 Mg Tab, 1 TAB PO DAILY, #90 TAB 1 Refill 10/03/16 Nitroglycerin (Nitrostat) 0.4 Mg Sub, 0.4 MG SL every 5 minutes PRN PRN for chest pain 05/24/16 Glimepiride (Glimepiride) 1 Mg Tab, 1 TAB PO DAILY, #30 TAB 5 Refills 05/24/16 Potassium Chloride (POTASSIUM CHLORIDE CR) 10 Meq Tb, 1 TAB PO DAILY, #30 TAB 5 Refills 05/24/16 Meclizine Hcl (Meclizine Hcl) 25 Mg Tab, 25 MG PO DAILYP PRN for DIZZINESS, TAB 11/20/13 Ipratropium [place] (Atrovent) 0.03 % [place], 0.03 % NA 11/20/13 Aspirin (Asa) 81 Mg Ch, 81 MG PO DAILY 05/12/12 Current Medications Current Medications Medications (Trade) Dose Ordered Sig/Mirna Route PRN Reason Start Time Stop Time Status Last Admin Sodium Chloride (Saline Lock Ns) 10 ml Q8HR IV 05/28/24 06:00 05/28/24 06:37 Acetaminophen (Tylenol Tablet) 325 mg Q4HP PRN PO MILD PAIN (1-3 PAIN SCALE) 05/27/24 22:15 Acetaminophen/ Hydrocodone Bitart ([place] 5/325MG Tab) 1 tab Q4HP PRN PO MODERATE PAIN (4-6 PAIN SCALE) 05/27/24 22:15 05/28/24 02:41 Ondansetron HCl (Zofran) 4 mg Q4HP PRN IV NAUSEA / VOMITING 05/27/24 22:15 Nitroglycerin (Ntrostat Sublingual) 0.4 mg Q5MINP PRN SL FOR CHEST PAIN 05/27/24 22:15 Morphine Sulfate 2 mg Q30M PRN IV FOR CHEST PAIN 05/27/24 22:15 Zirconium Oxide (Lokelma) 10 gm TID PO 05/28/24 06:00 05/29/24 22:01 05/28/24 06:38 Aspirin 81 mg DAILY PO 05/28/24 10:00 05/28/24 09:57 Atorvastatin Calcium (Lipitor) 20 mg DAILY PO 05/28/24 10:00 05/28/24 09:53 Carvedilol (Coreg Tablet) 6.25 mg BIDWM PO 05/28/24 08:00 05/28/24 09:56 Patient Own Medication 1 tab DAILY PO 05/28/24 10:00 Hold Furosemide (Lasix Injection) 40 mg DAILY IV 05/28/24 10:00 Albuterol (Ventolin Medneb) 2.5 mg Q4HR NEB 05/28/24 02:00 05/28/24 10:19 Ipratropium [place] (Atrovent Medneb) 0.5 mg Q4HR NEB 05/28/24 02:00 05/28/24 10:18 Enoxaparin Sodium (Lovenox) 70 mg DAILY SC 05/28/24 10:00 Hold Ceftriaxone Sodium 50 ml @ 100 mls/hr DAILY@09 IV 05/28/24 09:00 05/28/24 09:58 Vancomycin HCl 0 ml @ 0 mls/hr UD IV 05/27/24 22:45 Diagnostic Test (Pha) (Accu-Chek Comfort Curve T) 1 strip ACHS 05/28/24 07:00 05/28/24 06:47 Insulin Human Regular (InsuLIN R) ACHS SC 05/28/24 07:00 Dextrose 50 ml UD PRN IV Blood Sugar LESS THAN 60 05/28/24 03:30 Ergocalciferol (Vitamin D 50,000 Unit) 50,000 unit Q7D PO 05/28/24 03:30 Review of Systems Patient seen and examined in the bedside. Patient is alert and oriented to time, place and person. Patient reports mild chest pain which is improved shins came to the hospital. Patient is currently on 4 L oxygen per minute and SpO2 95%. Patient reports pain in the right hand index finger radiating towards the rest. Patient also reports that she is feeling weak and is short of breath if she reclines down head side of bed. Patient does not report of dizziness, palpitations, abdominal pain, nausea, vomiting. Vital Signs Vital Signs Date Time Temp Pulse Resp B/P (MAP) Pulse Ox O2 Delivery O2 Flow Rate FiO2 05/28/24 10:23 77 20 100 05/28/24 10:18 Nasal Cannula* 4 36 05/28/24 09:56 145/73 05/28/24 09:00 97.6 97.6 Physical Exam Physical Examination Gen - no pallor, no icterus, no cyanosis, no clubbing, no LAD, no edema . Skin - Patients skin is warm and dry. HEENT - normocephalic, atraumatic, moist mucous membranes. Neck - full ROM, no LAD, no JVD Pulmonary - B/L decreased breath sounds with bibasilar crackles, no wheezing, no stridor. cardiovascular - normal S1,S2 heard. no murmurs heard. peripheral pulses normal radial 2+, pedal 2+. capillary refill normal <2 secs. GI - soft abdomen without tenderness to palpation. no hepatospleenomegaly. Bowel sounds+. Neurological - Patient is A/O X 3 . Bilateral upper extremity strength 5/5, bilateral lower extremity strength 5/5, no facial droop, normal speech, no tremor. Extremities- bilateral lower extremities have hyperpigmentation on the shins. Decreased sensation in the feet bilaterally. Left upper extremity AV fistula. Labs/Diagnostic Data Labs Test 05/28/24 09:20 05/28/24 06:43 05/27/24 22:54 05/27/24 20:46 Range/Units White Blood Count 7.2 4.4-10.8 10^3/uL Red Blood Count 3.28 L 4.0-5.20 10^6/uL Hemoglobin 9.8 L 12.2-16.2 g/dL Hematocrit 30.8 L 36.0-46.0 % Mean Corpuscular Volume 94.0 80.0-100.0 fL Mean Corpuscular Hemoglobin 29.7 28.0-32.0 pg Mean Corpuscular Hemoglobin Concent 31.6 L 32.0-36.0 g/dL Red Cell Distribution Width 15.4 H 11.8-14.3 % Platelet Count 90 L 140-450 10^3/uL Mean Platelet Volume 8.8 6.9-10.8 fL Neutrophils (%) (Auto) 78.6 37.0-80.0 % Lymphocytes (%) (Auto) 6.5 L 10.0-50.0 % Monocytes (%) (Auto) 9.4 0.0-12.0 % Eosinophils (%) (Auto) 4.8 0.0-7.0 % Basophils (%) (Auto) 0.7 0.0-2.0 % Neutrophils # (Auto) 5.6 1.6-8.6 10 ^3/uL Lymphocytes # (Auto) 0.5 0.4-5.4 10 ^3/uL Monocytes # (Auto) 0.7 0-1.3 10 ^3/uL Eosinophils # (Auto) 0.3 0-0.8 10 ^3/uL Basophils # (Auto) 0.1 0-0.2 10 ^3/uL Nucleated Red Blood Cells 0.0 % Sodium Level 139 136-145 mmol/L Potassium Level 5.3 H 3.5-5.1 mmol/L Chloride Level 102 98-107 mmol/L Carbon Dioxide Level 24 20-31 mmol/L Anion Gap 13 5-15 Blood Urea Nitrogen 65 H 9-23 mg/dL Creatinine 8.38 H 0.550-1.02 mg/dL Glomerular Filtration Rate Calc 5 >90 mL/min BUN/Creatinine Ratio 7.8 L 10.0-20.0 Serum Glucose 171 H 74-106 mg/dL Calcium Level 7.6 L 8.7-10.4 mg/dL Phosphorus Level 7.4 H 2.4-5.1 mg/dL Magnesium Level 2.5 1.6-2.6 mg/dL Total Bilirubin 0.2 0.2-1.0 mg/dL Aspartate Amino Transferase (AST) < 8 L 13-40 U/L Alanine Aminotransferase (ALT) 10 7-40 U/L Alkaline Phosphatase 171 H 46-116 U/L Total Protein 6.8 5.7-8.2 g/dL Albumin 3.8 3.2-4.8 g/dL Parathyroid Hormone (Intact) 1081.8 H 18.4-80.1 pg/mL Random Vancomycin Level 8.7 5-10 ug/mL POC Glucose 129 H 70-106 mg/dl Prothrombin Time 11.2 9.3-11.8 sec Prothrombin Time INR 1.06 0.9-1.15 Activated Partial Thromboplast Time 35.7 H 24.5-34.5 SEC Hemoglobin A1c 6.1 H <5.7 % A1C Vitamin B12 Level 669 211-911 pg/mL Vitamin D 25-Hydroxy 17.8 L 30.0-100 ng/mL Influenza Type A Antigen Negative Negative Influenza Type B Antigen Negative Negative SARS-CoV-2 Antigen (Rapid) Negative NEGATIVE Test 05/27/24 18:38 05/27/24 18:34 05/27/24 17:44 Range/Units Troponin I High Sensitivity 17 </=34 ng/L Thyroid Stimulating Hormone (TSH) 1.94 0.55-4.78 uIU/mL Platelet Estimate Decreased Large Platelets Few B-Type Natriuretic Peptide 483.63 0-100 pg/mL Plan/Recommendation Assessment and plan # ESRD on Hemodialysis - serum creatinine 8.04--> 8.38, BUN 65 - serum phosphorus 7.4 mg/dl - serum calcium 7.6 mg/dl - PTH 1081.8 mg/dL - vitamin-D 17.8 - patient is to be scheduled for hemodialysis today # Hyperkalemia - serum potassium 5.2--> 5.3 - emergent medical management given - patient on Lokelma 10 g p.o. t.i.d. - hemodialysis to be done # hyperphosphatemia - serum phos 7.4 - patient is started on sevelamer 800 mg p.o. t.i.d. # acute on chronic congestive heart failure ? HFpEF # ? Cellulitis of the right index finger # paroxysmal atrial fibrillation # COPD on home oxygen 3-5 L # type 2 diabetes mellitus, hemoglobin A1c 6.1% # vitamin-D deficiency Discussed with the patient for over 20 minutes. Full code. Plan discussed with Dr. Cano Patient seen and examined by myself today with the medicine resident. I agree with the assessment and plan as documented above Plan discussed with: Patient LYDIA FOSTER RESIDENT May 28, 2024 11:16 PRAVEEN CANO MD May 28, 2024 14:30
[2024-05-28] MEDS: SEVELAMER 800 MG TAB PO SCH (12:32)
[2024-05-28] MEDS: SODIUM CHL 0.9% 1000 ML BAG XX ONE (14:30)
--- NOTE | 2024-05-28 16:07 | DVH ---
BILATERAL Lower Extremity Arterial Duplex Date: 05/28/2024 01:35 PM Clinical History: B/L LEG EDEMAS, FEBLE PULSE Comparison: None Technique: Duplex Doppler evaluation including color Doppler and spectral/pulsed waveform analysis of the lower extremity arteries was performed. Finding: RIGHT: Peak systolic velocities are as follows: PROMOTIONS EXECUTIVE PRODUCER 113 cm/s Deep femoral 94 cm/s SFA proximal 92 cm/s SFA mid-portion 84 cm/s SFA distal 68 cm/s Popliteal 75 cm/s Posterior tibial 73 cm/s Anterior tibial 63 cm/s Dorsalis pedis 81 cm/s The waveforms are triphasic waveforms throughout. LEFT: Peak systolic velocities are as follows: PROMOT[employer] EXECUTIVE PRODUCER 130 cm/s Deep femoral 110 cm/s SFA proximal 112 cm/s SFA mid-portion 98 cm/s SFA distal 90 cm/s Popliteal 116 cm/s Posterior tibial 79 cm/s Anterior tibial 69 cm/s Dorsalis pedis 98 cm/s The waveforms are triphasic and biphasic waveforms throughout.. REFERENCE VALUES, [facility]) vascular Imaging Lab Criteria: Peak systolic velocity ranges (in cm/sec) are as follows: <150 cm/s - <20 % stenosis 150-200 cm/s - 20-49% stenosis 200-300 cm/s - 50-75% stenosis >300 cm/s -> 75% stenosis IMPRESSION: 1. There is no evidence forperipheral vascular insufficiency in the right lower extremity. 2. There isno evidence forperipheral vascular insufficiency in the left lower extremity. 3. No significant focal stenosis is identified.
[2024-05-28] MEDS: PANTOPRAZOLE 40 MG TAB PO ONE (18:08)
[2024-05-28] MEDS: VANCOMYCIN 1.25GM/250ML 250 ML IV ONE (18:49)
[2024-05-28] MEDS: APIXABAN 5 MG TAB PO SCH (21:39)
[2024-05-28] MEDS: EPOETIN ALFA-EPBX 10,000 UNIT/1ML VIAL SC ONE (22:47)
[2024-05-29] VITALS (18 sets, daily range): BP systolic 138–193; BP diastolic 61–81; PULSE 71–88; RESP 16–20; TEMP 97.4–98.5; O2SAT 95–100
[2024-05-29] MEDS: ONDANSETRON HCL 4 MG/2 ML VIAL IV PRN (01:36)
[2024-05-29] MEDS: PANTOPRAZOLE 40 MG TAB PO SCH (06:38)
[2024-05-29] MEDS: SODIUM CHL 0.9% 1000 ML BAG XX ONE (07:00)
[2024-05-29 08:00] LABS: Basophils # (auto) 0.1 10 ^3/uL (0-0.2); Basophils % (auto) 0.8 % (0.0-2.0); Eosinophils # (auto) 0.3 10 ^3/uL (0-0.8); Eosinophils % (auto) 4.5 % (0.0-7.0); Hematocrit 31.4 % (36.0-46.0); Hemoglobin 9.9 g/dL (12.2-16.2); Lymphocytes # (auto) 0.5 10 ^3/uL (0.4-5.4); Lymphocytes % (auto) 6.7 % (10.0-50.0); Mean Corpuscular Hemoglobin 29.5 pg (28.0-32.0); Mean Corpuscular Hgb Conc. 31.6 g/dL (32.0-36.0); Mean Corpuscular Volume 93.3 fL (80.0-100.0); Monocytes # (auto) 0.6 10 ^3/uL (0-1.3); Monocytes % (auto) 9.2 % (0.0-12.0); Neutrophils # (auto) 5.3 10 ^3/uL (1.6-8.6); Neutrophils % (auto) 78.8 % (37.0-80.0); Nucleated Red Blood Cells % 0.1 %; Red Blood Cells 3.37 10^6/uL (4.0-5.20); Red Cell Distribution Width 15.1 % (11.8-14.3); White Blood Cell 6.8 10^3/uL (4.4-10.8)
[2024-05-29 08:01] LABS: Platelet Count (auto) 94 10^3/uL (140-450)
[2024-05-29 08:08] LABS: Anion Gap 11 (5-15); Carbon Dioxide 27 mmol/L (20-31); Chloride 98 mmol/L (98-107); Potassium 4.7 mmol/L (3.5-5.1); Sodium 136 mmol/L (136-145)
[2024-05-29 08:09] LABS: Calcium 7.9 mg/dL (8.7-10.4)
[2024-05-29 08:14] LABS: BUN/Creatinine Ratio 7.2 (10.0-20.0); Glucose 141 mg/dL (74-106); Magnesium 2.3 mg/dL (1.6-2.6)
[2024-05-29 08:15] LABS: Blood Urea Nitrogen 46 mg/dL (9-23)
--- NOTE | 2024-05-29 09:52 | DVHSR ---
APPROVED REPORT EXAM: LIMITED Two-dimensional and M-mode echocardiogram with Doppler and color Doppler. Blood Pressure: 148/63 mmHg INDICATION Chest Pain RISK FACTORS Obesity: Height: 5' 4", Weight: 267 DIMENSIONS LVDd4.9 (3.8-5.7cm)LA (2D)4.2 (1.9-4.0cm)Aortic Root3.0 (2.0-3.7cm) LVDs3.4 (2.5-4.0cm)LA (MM) (1.9-4.0cm)Aortic Cusp Exc1.4 (1.5-2.0cm) EF (%) 57.0 (55-70%)Rt. Atrium (1.9-4.0cm)Asc. Aorta cm IVSd1.5 (0.7-1.1cm)RV (D) (1.8-2.4cm) PWd1.3 (0.7-1.1cm) Mitral Valve MitralMitral Stenosis E wave1.70m/sMV Mean GR.mmHg A wave1.40m/sMV Peak GR.mmHg E/A ratio1.22D MVAcm2 Aortic Valve Aortic ValveAortic Stenosis V11.00m/Ian Mean GR.10mmHg V22.10m/Ian Peak GR.19mmHg LVOT Diameter2.1 (1.8-2.4cm)Doppler AVA1.65cm2 AI P 1/2 Afpq043.26ms Pulmonic Valve V20.80m/s Tricuspid Valve TR Velocity2.90m/s [id number] Other Information Quality : Technically LimitedRhythm : Technically limited study due to body habitus. Conclusion Normal left ventricular size and dimension. Normal left ventricular systolic function estimated ejec tion fraction 55%. There is a grade one diastolic dysfunction. Normal right ventricular size and dimension. Normal left ventricular systolic function. Mild-to-mod erately elevated right ventricular systolic pressure 40 mm of mercury Normal biatrial size and dimension. The aortic valve is mildly thickened and sclerotic. The mitral valve is thickened and sclerotic. There is mild tricuspid valve regurgitation. The pulmonary valve is grossly normal. No pericardial effusion. New
--- NOTE | 2024-05-29 11:46 | DVHPN2 ---
Progress Note Date Seen: May 29, 2024 Resident Creating Document: MULUGETA FOSTERCORINA RESIDENT Medical Necessity Reason Pt with a Central, PICC or Fol: No Subjective Review of Systems Patient is a 63-year-old female with a past medical history of hypertension, COPD on home oxygen 3-5 L, ESRD on hemodialysis MWF, congestive heart failure, atrial fibrillation on Eliquis, type 2 DM TS mellitus, rheumatoid arthritis, osteoporosis presented to the ED with a chief complaint of chest pain for 3 days prior to admission. Patient reported that she was scheduled dialysis on Saturday and Saturday and started feeling shortness of breath and chest pain localized substernal, sharp and severe in intensity who, patient reported associated shortness of breath and orthopnea. Patient denied cough dizziness, diaphoresis, abdominal pain, any change in bowel and bladder habit. Patient also reported pain in the right hand with redness of the right index finger for the last 3 days. Review of Systems Patient seen and examined in the bedside. Patient is alert and oriented to time, place and person. Patient reports mild chest pain which is improved shins came to the hospital. Patient is currently on 4 L oxygen per minute and SpO2 95%, blood pressure 138/78 mmHg, pulse 73/Min regular. Patient reports pain in the right hand index finger radiating towards the rest. Patient does not report of dizziness, palpitations, abdominal pain, nausea, vomiting. Objective vital signs Vital Sign Date Time Temp Pulse Resp B/P (MAP) Pulse Ox O2 Delivery O2 Flow Rate FiO2 05/29/24 10:36 78 18 05/29/24 10:26 100 Nasal Cannula* 4 36 05/29/24 09:00 97.4 138/78 (98) 97.4 Total Intake and Output 05/28/24 05/28/24 05/29/24 15:00 23:00 07:00 Intake Total 400 ml 15 ml Output Total 0 ml Balance 400 ml 15 ml medications Current Medications Medications Dose Ordered Sig/Mirna Route Start Time Stop Time Status Last Admin Dose Admin Sodium Chloride 10 ml Q8HR IV 05/28/24 06:00 05/29/24 06:38 10 ML Acetaminophen 325 mg Q4HP PRN PO 05/27/24 22:15 Acetaminophen/ Hydrocodone Bitart 1 tab Q4HP PRN PO 05/27/24 22:15 05/28/24 21:39 1 TAB Ondansetron HCl 4 mg Q4HP PRN IV 05/27/24 22:15 05/29/24 01:36 4 MG Nitroglycerin 0.4 mg Q5MINP PRN SL 05/27/24 22:15 Morphine Sulfate 2 mg Q30M PRN IV 05/27/24 22:15 Zirconium Oxide 10 gm TID PO 05/28/24 06:00 05/29/24 22:01 05/29/24 06:39 10 GM Aspirin 81 mg DAILY PO 05/28/24 10:00 05/29/24 08:58 81 MG Atorvastatin Calcium 20 mg DAILY PO 05/28/24 10:00 05/29/24 08:57 20 MG Carvedilol 6.25 mg BIDWM PO 05/28/24 08:00 05/29/24 08:58 6.25 MG Patient Own Medication 1 tab DAILY PO 05/28/24 10:00 Hold Albuterol 2.5 mg Q4HR NEB 05/28/24 02:00 05/29/24 10:24 2.5 MG Ipratropium [place] 0.5 mg Q4HR NEB 05/28/24 02:00 05/29/24 10:25 0.5 MG Ceftriaxone Sodium 50 ml @ 100 mls/hr DAILY@09 IV 05/28/24 09:00 05/29/24 08:58 100 MLS/HR Vancomycin HCl 0 ml @ 0 mls/hr UD IV 05/27/24 22:45 Diagnostic Test (Pha) 1 strip ACHS 05/28/24 07:00 05/29/24 06:40 1 STRIP Insulin Human Regular ACHS SC 05/28/24 07:00 05/28/24 23:07 4 UNITS Dextrose 50 ml UD PRN IV 05/28/24 03:30 Ergocalciferol 50,000 unit Q7D PO 05/28/24 03:30 Sevelamer HCl 800 mg TIDWM PO 05/28/24 12:00 05/29/24 08:58 800 MG Apixaban 5 mg BID PO 05/28/24 22:00 05/29/24 08:57 5 MG Pantoprazole Sodium 40 mg DAILY@0600 PO 05/29/24 06:00 05/29/24 06:38 40 MG Hydralazine HCl 10 mg Q6HP PRN IV 05/28/24 21:15 Examination Gen - no pallor, no icterus, no cyanosis, no clubbing, no LAD, no edema . Skin - Patients skin is warm and dry. HEENT - normocephalic, atraumatic, moist mucous membranes. Neck - full ROM, no LAD, no JVD Pulmonary - B/L decreased breath sounds with bibasilar crackles, no wheezing, no stridor. cardiovascular - normal S1,S2 heard. no murmurs heard. peripheral pulses normal radial 2+, pedal 2+. capillary refill normal <2 secs. GI - soft abdomen without tenderness to palpation. no hepatospleenomegaly. Bowel sounds+. Neurological - Patient is A/O X 3 . Bilateral upper extremity strength 5/5, bilateral lower extremity strength 5/5, no facial droop, normal speech, no tremor. Extremities- bilateral lower extremities have hyperpigmentation on the shins. Decreased sensation in the feet bilaterally. Left upper extremity AV fistula. laboratory and microbiology Laboratory Tests 05/29/24 07:40 Test 05/29/24 07:40 Range/Units Serum Glucose 141 H 74-106 mg/dL Problem List/Assessment/Plan Problem List/Assessment/Plan Assessment and plan # ESRD on Hemodialysis - serum creatinine 8.04--> 8.38, BUN 65 - serum phosphorus 7.4 mg/dl - serum calcium 7.9 mg/dl - PTH 1081.8 mg/dL - hemodialysis done on 05/28 with the removal of 3000 mL of fluid creatinine improved 6.41 and BUN to 46. - patient is leg edema almost resolved and improved breath sounds with decreased crackles. - avoid nephrotoxic medication # Hyperkalemia - serum potassium 5.2--> 5.3 --> 4.7 - emergent medical management given - patient on Lokelma 10 g p.o. t.i.d. - hemodialysis done on 05/28 # hyperphosphatemia - serum phos 7.4-->6.5 - patient is started on sevelamer 800 mg p.o. t.i.d. # ? Cellulitis of the right index finger - midline to be inserted - on IV vancomycin and ceftriaxone # acute on chronic congestive heart failure ? HFpEF # paroxysmal atrial fibrillation # COPD on home oxygen 3-5 L # type 2 diabetes mellitus, hemoglobin A1c 6.1% # vitamin-D deficiency Discussed with the patient for over 20 minutes. Full code. Plan discussed with Dr. Jean Plan discussed with: Patient My Orders My Orders Orders - LYDIA FOSTER Procedure Category Date Status Time Phosphorus LAB 05/29/24 In Process 08:41 Insert Midline ORDERS 05/29/24 Transmitted 11:29 LYDIA FOSTER May 29, 2024 11:46
--- NOTE | 2024-05-29 14:37 | MEDREC ---
[facility] ASP Intervention Section I [facility] ASP Intervention: Duplication of therapy (PLEASE CONSIDER DISCONTINUE CEFTRIAXONE DUE TO DUPLICATION WITH MEROPENEM) KENYA PABLO [facility] May 29, 2024 14:37
--- NOTE | 2024-05-29 15:51 | DVHPNRES ---
Progress Note Date Seen: May 29, 2024 Resident Creating Document: PATRICIA JARAMILLO RESIDENT Medical Necessity Reason Pt with a Central, PICC or Fol: No Subjective Review of Systems Patient is 63 years old female with past medical history not limited to COPD on home oxygen [place] O2 3-4 liter/minute, ESRD on hemodialysis 3 times per week, Saturday, Saturday and Saturday, congestive heart failure, hypertension, paroxysmal atrial fibrillation on Eliquis, diabetes mellitus type 2, hypertension, rheumatoid arthritis, osteoporosis, chronic back pain came with a complaint of chest pain and shortness of breaths for 3 days. Patient patient woke up from sleep 3 days before and feeling weak and tired. She started having chest pain, central in nature, sharp, pressure-like, 10/10, radiating to the back at times, pain was intermittent in nature. Patient also had short of breath for the same duration which increased with exertion, relieved with rest and hemodialysis. Patient also endorsed feeling generalized weakness and wheezing for last 1 week. As per patient's patient's legs are chronically swollen. Patient also endorsed swelling of the right index finger that started 3-4 days back, painful, tender to touch. Per patient she missed her dialysis on last Saturday and Saturday as she was not feeling good, feeling tired. Patient denied any fever, palpitation, dizziness, change in vision, diarrhea. Echo 2D revealedNormal left ventricular size and dimension. Normal left ventricular systolic function estimated ejection fraction 55%. There is a grade one diastolic dysfunction. Normal right ventricular size and dimension. Normal left ventricular systolic function. [id number] elevated right ventricular systolic pressure 40 mm of mercury Normal biatrial size and dimension. The aortic valve is mildly thickened and sclerotic. The mitral valve is thickened and sclerotic. There is mild tricuspid valve regurgitation PMH-COPD on home oxygen [place] O2 3-4 liter/minute, ESRD on hemodialysis 3 times per week, Saturday, Saturday and Saturday, congestive heart failure, hypertension, paroxysmal atrial fibrillation on Eliquis, diabetes mellitus type 2, hypertension, rheumatoid arthritis, osteoporosis, chronic back pain PSH- cholecystectomy, tonsillectomy Allergy- NKDA Personal History/ Social History- lives with daughter and mom, nonalcoholic, nonsmoker, no drug abuser as per patient Patient was seen today at the bedside. Patient feeling better today Cardiovascular- deny palpitation Respiratory- denies cough Gastrointestinal- denies any rectal bleeding, nausea or vomiting Musculoskeletal-denies acute joint swelling or tenderness or redness Neurological- denies acute dysarthria, dysphagia, change in vision Psychiatry- denies depression or SI or HI Skin- denies acute rash or purpura Seen today for clinical evaluation. Labs and chart reviewed. Patient reported ongoing right index finger. Patient has tried interferon use more swollen and reddish. Ordered orthopedic consult for further evaluation and care. Continue IV ceftriaxone. Ordered meropenem 500 mg IV daily. Patient was seen by Nephrology today. Recommendations reviewed and appreciated.Hemodialysis done on 05/28/24 with the removal of 3000 mL of fluid creatinine improved 6.41 and BUN to 46. patient is leg edema almost resolved and improved breath sounds with decreased crackles. Hyperkalemia resolved. For the recommended for midline insertion for IV antibiotic meropenem and vancomycin Objective vital signs Vital Sign Date Time Temp Pulse Resp B/P (MAP) Pulse Ox O2 Delivery O2 Flow Rate FiO2 05/29/24 13:00 98.0 74 18 171/68 (102) 96 98.0 05/29/24 10:26 Nasal Cannula* 4 36 Total Intake and Output 05/28/24 05/28/24 05/29/24 15:00 23:00 07:00 Intake Total 400 ml 15 ml Output Total 0 ml Balance 400 ml 15 ml medications Current Medications Medications Dose Ordered Sig/Mirna Route Start Time Stop Time Status Last Admin Dose Admin Sodium Chloride 10 ml Q8HR IV 05/28/24 06:00 05/29/24 14:57 10 ML Acetaminophen 325 mg Q4HP PRN PO 05/27/24 22:15 Acetaminophen/ Hydrocodone Bitart 1 tab Q4HP PRN PO 05/27/24 22:15 05/28/24 21:39 1 TAB Ondansetron HCl 4 mg Q4HP PRN IV 05/27/24 22:15 05/29/24 15:07 4 MG Nitroglycerin 0.4 mg Q5MINP PRN SL 05/27/24 22:15 Morphine Sulfate 2 mg Q30M PRN IV 05/27/24 22:15 Zirconium Oxide 10 gm TID PO 05/28/24 06:00 05/29/24 22:01 05/29/24 06:39 10 GM Aspirin 81 mg DAILY PO 05/28/24 10:00 05/29/24 08:58 81 MG Atorvastatin Calcium 20 mg DAILY PO 05/28/24 10:00 05/29/24 08:57 20 MG Carvedilol 6.25 mg BIDWM PO 05/28/24 08:00 05/29/24 08:58 6.25 MG Patient Own Medication 1 tab DAILY PO 05/28/24 10:00 Hold Albuterol 2.5 mg Q4HR NEB 05/28/24 02:00 05/29/24 10:24 2.5 MG Ipratropium [place] 0.5 mg Q4HR NEB 05/28/24 02:00 05/29/24 10:25 0.5 MG Vancomycin HCl 0 ml @ 0 mls/hr UD IV 05/27/24 22:45 Diagnostic Test (Pha) 1 strip ACHS 05/28/24 07:00 05/29/24 12:29 1 STRIP Insulin Human Regular ACHS SC 05/28/24 07:00 05/29/24 12:39 3 UNITS Dextrose 50 ml UD PRN IV 05/28/24 03:30 Ergocalciferol 50,000 unit Q7D PO 05/28/24 03:30 Sevelamer HCl 800 mg TIDWM PO 05/28/24 12:00 05/29/24 12:38 800 MG Apixaban 5 mg BID PO 05/28/24 22:00 05/29/24 08:57 5 MG Pantoprazole Sodium 40 mg DAILY@0600 PO 05/29/24 06:00 05/29/24 06:38 40 MG Hydralazine HCl 10 mg Q6HP PRN IV 05/28/24 21:15 Meropenem 50 ml @ 17 mls/hr DAILY IV 05/29/24 15:00 Examination General examination- awake alert, , conversant HEENT- PEERLA, no acute nasal discharge Cardiovascular- S1-S2 audible, rate and rhythm regular, no murmur Respiratory-bilateral lung crackles++ Gastrointestinal-nontender, bowel sound+. Nondistended Musculoskeletal-no acute joint swelling or tenderness or redness upper extremity and Lower extremity- edema+, lower extremity lactulose skin, bilateral lower extremity afebrile pulse. Right index finger red, swollen, tender, redness spreading to the dorsum of the right hand Neurological- cranial nerves intact, no acute dysarthria or dysphagia Psychiatry- denies depression or SI or HI Skin- no acute rash or purpura laboratory and microbiology Laboratory Tests 05/29/24 07:40 Test 05/29/24 07:40 Range/Units Serum Glucose 141 H 74-106 mg/dL Problem List/Assessment/Plan Problem List/Assessment/Plan #Acute on chronic hypoxic respiratory failure likely due to acute on chronic heart failure/acute exacerbation of COPD/fluid overload due to ESRD - CXR- Cardiomegaly with pulmonary findings either consistent with chronic pulmonary disease or congestive failure. -please continue with [place] O2 to maintain SpO2 more than 90% -continue nebulization as prescribed -on 05/29/2024 discontinued ceftriaxone 1 g IV daily and ordered meropenem 500 mg IV daily -continue IV vancomycin as per pharmacy protocol -strict intake output chart -avoid nephrotoxic drugs -nephrology consult reviewed and appreciated -hemodialysis as per Nephrology recommendation #Acute exacerbation of COPD/fluid overload likely due to ESRD - Cardiomegaly with pulmonary findings either consistent with chronic pulmonary disease or congestive failure. -please continue with [place] O2 to maintain SpO2 more than 90% -continue nebulization as prescribed --on 05/29/2024 discontinued ceftriaxone 1 g IV daily and ordered meropenem 500 mg IV daily -continue IV vancomycin as per pharmacy protocol -strict intake output chart -avoid nephrotoxic drugs -nephrology consult reviewed and appreciated - hemodialysis as per Nephrology recommendation #Pulmonary edema likely due to ESRD, patient missed last 2 hemodialysis - Cardiomegaly with pulmonary findings either consistent with chronic pulmonary disease or congestive failure. -ordered nephrology consult -avoid nephrotoxic drugs #Cellulitis of the right index finger staining to the dorsum of hand -ordered orthopedic consult -CT head and- Mild soft tissue edema /inflammatory changes involving the 2nd digit. -on 05/29/2024 discontinued ceftriaxone 1 g IV daily and ordered meropenem 500 mg IV daily -continue vancomycin as per pharmacy # Acute exacerbation of CHF - x-ray revealed cardiomegaly with pulmonary vascular congestion - BNP is elevated - Lasix 40 mg IV daily - Continue carvedilol 6.25 mg b.i.d. - Ordered echo #Bilateral leg edema likely due to ESRD/CHF -duplex arterial study of the lower extremity negative for significant stenosis -continue hemodialysis as recommended # History of paroxysmal atrial fibrillation with secondary hypercoagulable state - [id number] score 4 - continue Eliquis 5 mg p.o. b.i.d. except hold it for dialysis until after. # Hyperkalemia -K 5.2>5.3>4.7 - Hyperkalemia protocol management - Lokelma 10 mg p.o. t.i.d. #Hyperphosphatemia - serum phos 7.4> 6.5 -continue sevelamer 800 mg p.o. t.i.d. # Type 2 diabetes mellitus, hemoglobin A1c 6.1 - Mild sliding scale of insulin # Vitamin D deficiency - Vitamin D 65665 units Q 7D # History of coronary artery disease - Aspirin 81 mg daily and atorvastatin 20 mg at HS # ESRD on hemodialysis -- missed last 2 dialysis in Saturday and Saturday -nephrology recommendation reviewed and appreciated. -as per patient patient gets hemodialysis on Saturday, Saturday, Saturday. -avoid nephrotoxic drugs - serum creatinine 8.04--> 8.38, BUN 65 - serum phosphorus 7.4 mg/dl - serum calcium 7.9 mg/dl - PTH 1081.8 mg/dL - hemodialysis done on 05/28/2024 with the removal of 3000 mL of fluid creatinine improved 6.41 and BUN to 46. - patients leg edema almost resolved and improved breath sounds with decreased crackles. - avoid nephrotoxic medication Goals of care/advance care planning; FULL CODE; discussed with the patient PUD prophylaxis: Pantoprazole DVT prophylaxis: On Eliquis Plan discussed with Dr. Chase,,, nursing staff, patient Total time spent on patient evaluation, chart review, assessment and plan, discussion discussion >20 minutes Plan discussed with: Patient Plan discussed with: Patient, Other (RN) My Orders My Orders Orders - PATRICIA JARAMILLO Procedure Category Date Status Time Pantoprazole Tablet PHA 05/29/24 In Process (Protonix Tablet) 06:00 Date of Service: May 29, 2024 Billing Provider: RADHA CHASE MD Common Visit Codes: [id number] INP/OBS CARE(HIGH) PATRICIA JARAMILLO May 29, 2024 15:51 RADHA CHASE MD May 29, 2024 20:24
[2024-05-29] MEDS ORDERED: ALBU108A5 IN (17:26)
[2024-05-29] MEDS ORDERED: APIX2.5T PO (17:26)
[2024-05-29] MEDS ORDERED: GABA-1308 PO (17:26)
[2024-05-29] MEDS ORDERED: PANT-62 PO (17:26)
[2024-05-29] MEDS ORDERED: FLUT1AER17 IN (17:26)
[2024-05-29] MEDS ORDERED: MONT-8 PO (17:26)
[2024-05-29] MEDS ORDERED: SEVE800T8 PO (17:26)
[2024-05-29] MEDS ORDERED: IPRA0.00 NEB (17:26)
[2024-05-29] MEDS ORDERED: ALEN70TA74 PO (17:26)
[2024-05-29] MEDS ORDERED: METO1TAB77 PO (17:26)
[2024-05-29] MEDS: MEROPENEM 500MG IVPB 50 ML IV SCH (17:34)
[2024-05-29] MEDS: GABAPENTIN 100 MG CAP PO SCH (21:55)
[2024-05-30] VITALS (24 sets, daily range): BP systolic 129–181; BP diastolic 53–79; PULSE 66–85; RESP 17–20; TEMP 97.4–98.5; O2SAT 93–100
[2024-05-30 07:25] LABS: Hematocrit 29.6 % (36.0-46.0); Hemoglobin 9.6 g/dL (12.2-16.2); Mean Corpuscular Hemoglobin 29.9 pg (28.0-32.0); Mean Corpuscular Hgb Conc. 32.4 g/dL (32.0-36.0); Mean Corpuscular Volume 92.3 fL (80.0-100.0); Platelet Count (auto) 105 10^3/uL (140-450); Red Blood Cells 3.21 10^6/uL (4.0-5.20); Red Cell Distribution Width 14.9 % (11.8-14.3); White Blood Cell 5.6 10^3/uL (4.4-10.8)
[2024-05-30 07:32] LABS: Basophils % (manual) 0 (0.0-2.0); Blast Cells 0; Eosinophils % (manual) 0 (0-7); Metamyelocytes % 0; Myelocytes % 0; Promyelocytes % 0; Reactive Lymphocytes 0
[2024-05-30 07:37] LABS: Anion Gap 10 (5-15); Carbon Dioxide 29 mmol/L (20-31); Chloride 98 mmol/L (98-107); Potassium 4.2 mmol/L (3.5-5.1); Sodium 137 mmol/L (136-145)
[2024-05-30 07:38] LABS: Calcium 8.1 mg/dL (8.7-10.4)
[2024-05-30 07:43] LABS: BUN/Creatinine Ratio 6.2 (10.0-20.0); Blood Urea Nitrogen 36 mg/dL (9-23); Glucose 112 mg/dL (74-106); Magnesium 2.4 mg/dL (1.6-2.6)
[2024-05-30 08:31] LABS: Band Neutrophils % (manual) 4; Lymphocytes % (manual) 14 (10.0-50.0); Monocytes % (manual) 4 (0-12); Platelet Estimate Decreased
[2024-05-30] MEDS ORDERED: PANTOPRAZOLE 40 MG/10 ML VIAL INJ IV SCH (10:00)
[2024-05-30] MEDS: PANTOPRAZOLE 40 MG/10 ML VIAL INJ IV ONE (10:55)
[2024-05-30] MEDS: PANTOPRAZOLE 40 MG TAB PO SCH (10:56)
[2024-05-30] MEDS: MORPHINE SULFATE INJ 2 MG/ml SYRG IV PRN (11:00)
[2024-05-30] MEDS: CALCIUM CARB 500 MG CHEW TAB PO SCH (12:50)
--- NOTE | 2024-05-30 15:01 | DVHPN2 ---
Progress Note Date Seen: May 30, 2024 Medical Necessity Reason Pt with a Central, PICC or Fol: No Subjective Review of Systems Pt resting in bed. States she has been tolerating hemodialysis well. Last hemodialysis yesterday. Patient reports: No new complaints, Feels better Objective vital signs Vital Sign Date Time Temp Pulse Resp B/P (MAP) Pulse Ox O2 Delivery O2 Flow Rate FiO2 05/30/24 11:00 79 20 189/62 05/30/24 10:41 95 05/30/24 10:35 Nasal Cannula* 3 32 05/30/24 09:00 97.4 97.4 Total Intake and Output 05/29/24 05/29/24 05/30/24 15:00 23:00 07:00 Intake Total 170 ml 120 ml Output Total 0 ml Balance 170 ml 120 ml medications Current Medications Medications Dose Ordered Sig/Mirna Route Start Time Stop Time Status Last Admin Dose Admin Sodium Chloride 10 ml Q8HR IV 05/28/24 06:00 05/29/24 21:58 10 ML Acetaminophen 325 mg Q4HP PRN PO 05/27/24 22:15 Acetaminophen/ Hydrocodone Bitart 1 tab Q4HP PRN PO 05/27/24 22:15 05/30/24 08:29 1 TAB Ondansetron HCl 4 mg Q4HP PRN IV 05/27/24 22:15 05/30/24 08:29 4 MG Nitroglycerin 0.4 mg Q5MINP PRN SL 05/27/24 22:15 Aspirin 81 mg DAILY PO 05/28/24 10:00 05/30/24 10:56 81 MG Atorvastatin Calcium 20 mg DAILY PO 05/28/24 10:00 05/30/24 10:56 20 MG Carvedilol 6.25 mg BIDWM PO 05/28/24 08:00 05/30/24 08:23 6.25 MG Albuterol 2.5 mg Q4HR NEB 05/28/24 02:00 05/30/24 10:35 2.5 MG Ipratropium [place] 0.5 mg Q4HR NEB 05/28/24 02:00 05/30/24 10:35 0.5 MG Vancomycin HCl 0 ml @ 0 mls/hr UD IV 05/27/24 22:45 Diagnostic Test (Pha) 1 strip ACHS 05/28/24 07:00 05/30/24 12:51 1 STRIP Insulin Human Regular ACHS SC 05/28/24 07:00 05/30/24 12:57 2 UNITS Dextrose 50 ml UD PRN IV 05/28/24 03:30 Ergocalciferol 50,000 unit Q7D PO 05/28/24 03:30 05/30/24 10:56 50,000 UNIT Sevelamer HCl 800 mg TIDWM PO 05/28/24 12:00 05/30/24 12:50 800 MG Apixaban 5 mg BID PO 05/28/24 22:00 05/30/24 10:56 5 MG Hydralazine HCl 10 mg Q6HP PRN IV 05/28/24 21:15 Meropenem 50 ml @ 17 mls/hr DAILY IV 05/29/24 15:00 05/30/24 10:57 17 MLS/HR Gabapentin 100 mg BID PO 05/29/24 22:00 05/30/24 10:57 100 MG Losartan Potassium 50 mg DAILY PO 05/30/24 10:00 05/30/24 10:56 50 MG Morphine Sulfate 2 mg Q6HR PRN IV 05/30/24 09:30 05/30/24 11:00 2 MG Pantoprazole Sodium 40 mg DAILY@0600 PO 05/30/24 09:30 05/30/24 10:56 40 MG Calcium Carbonate 500 mg TIDWM PO 05/30/24 12:00 05/30/24 12:50 500 MG Examination General: Appears stated age, in no acute distress Pulm: CTA bilaterally CVS: RRR, normal S1 and S2 Ext: + BLE edema Neuro: Alert and oriented x4 laboratory and microbiology Laboratory Tests 05/30/24 06:27 Test 05/30/24 06:27 Range/Units Serum Glucose 112 H 74-106 mg/dL Labs and/or images reviewed: Labs reviewed by me Problem List/Assessment/Plan Problem List/Assessment/Plan ESRD on Hemodialysis Hyperkalemia-resolved hyperphosphatemia type 2 diabetes mellitus acute on chronic congestive heart failure ? HFpEF paroxysmal atrial fibrillation COPD vitamin-D deficiency REC Hemodialysis M/W/F- last hemodialysis 05/29 Monitor chemistry panel Continue sevelamer Will continue to follow Plan discussed with: Patient, Other ELVIN MYERS May 30, 2024 15:01
--- NOTE | 2024-05-30 16:29 | DVHPNRES ---
Progress Note Date Seen: May 30, 2024 Resident Creating Document: PATRICIA JARAMILLO RESIDENT Medical Necessity Reason Pt with a Central, PICC or Fol: No Subjective Review of Systems Patient is 63 years old female with past medical history not limited to COPD on home oxygen [place] O2 3-4 liter/minute, ESRD on hemodialysis 3 times per week, Saturday, Saturday and Saturday, congestive heart failure, hypertension, paroxysmal atrial fibrillation on Eliquis, diabetes mellitus type 2, hypertension, rheumatoid arthritis, osteoporosis, chronic back pain came with a complaint of chest pain and shortness of breaths for 3 days. Patient patient woke up from sleep 3 days before and feeling weak and tired. She started having chest pain, central in nature, sharp, pressure-like, 10/10, radiating to the back at times, pain was intermittent in nature. Patient also had short of breath for the same duration which increased with exertion, relieved with rest and hemodialysis. Patient also endorsed feeling generalized weakness and wheezing for last 1 week. As per patient's patient's legs are chronically swollen. Patient also endorsed swelling of the right index finger that started 3-4 days back, painful, tender to touch. Per patient she missed her dialysis on last Saturday and Saturday as she was not feeling good, feeling tired. Patient denied any fever, palpitation, dizziness, change in vision, diarrhea. Echo 2D revealedNormal left ventricular size and dimension. Normal left ventricular systolic function estimated ejection fraction 55%. There is a grade one diastolic dysfunction. Normal right ventricular size and dimension. Normal left ventricular systolic function. [id number]-dh-[id number] elevated right ventricular systolic pressure 40 mm of mercury Normal biatrial size and dimension. The aortic valve is mildly thickened and sclerotic. The mitral valve is thickened and sclerotic. There is mild tricuspid valve regurgitation PMH-COPD on home oxygen [place] O2 3-4 liter/minute, ESRD on hemodialysis 3 times per week, Saturday, Saturday and Saturday, congestive heart failure, hypertension, paroxysmal atrial fibrillation on Eliquis, diabetes mellitus type 2, hypertension, rheumatoid arthritis, osteoporosis, chronic back pain PSH- cholecystectomy, tonsillectomy Allergy- NKDA Personal History/ Social History- lives with daughter and mom, nonalcoholic, nonsmoker, no drug abuser as per patient Patient was seen today at the bedside. Patient feeling better today Cardiovascular- deny palpitation Respiratory- denies cough Gastrointestinal- denies any rectal bleeding, nausea or vomiting Musculoskeletal-denies acute joint swelling or tenderness or redness Neurological- denies acute dysarthria, dysphagia, change in vision Psychiatry- denies depression or SI or HI Skin- denies acute rash or purpura Patient was seen today for clinical evaluation. Labs and chart reviewed. Patient's finger swelling has improved a little bit. Patient complained of epigastric pain which relieved with IV pantoprazole. Patient had hemodialysis yesterday. Hemoglobin level stable 9.6 today. Was seen by Nephrology, recommendation reviewed and appreciated. Objective vital signs Vital Sign Date Time Temp Pulse Resp B/P (MAP) Pulse Ox O2 Delivery O2 Flow Rate FiO2 05/30/24 15:07 69 20 100 05/30/24 15:01 Nasal Cannula 3.0 05/30/24 15:01 32 05/30/24 11:00 189/62 05/30/24 09:00 97.4 97.4 Total Intake and Output 05/29/24 05/29/24 05/30/24 15:00 23:00 07:00 Intake Total 170 ml 120 ml Output Total 0 ml Balance 170 ml 120 ml medications Current Medications Medications Dose Ordered Sig/Mirna Route Start Time Stop Time Status Last Admin Dose Admin Sodium Chloride 10 ml Q8HR IV 05/28/24 06:00 05/29/24 21:58 10 ML Acetaminophen 325 mg Q4HP PRN PO 05/27/24 22:15 Acetaminophen/ Hydrocodone Bitart 1 tab Q4HP PRN PO 05/27/24 22:15 05/30/24 08:29 1 TAB Ondansetron HCl 4 mg Q4HP PRN IV 05/27/24 22:15 05/30/24 08:29 4 MG Nitroglycerin 0.4 mg Q5MINP PRN SL 05/27/24 22:15 Aspirin 81 mg DAILY PO 05/28/24 10:00 05/30/24 10:56 81 MG Atorvastatin Calcium 20 mg DAILY PO 05/28/24 10:00 05/30/24 10:56 20 MG Carvedilol 6.25 mg BIDWM PO 05/28/24 08:00 05/30/24 08:23 6.25 MG Albuterol 2.5 mg Q4HR NEB 05/28/24 02:00 05/30/24 15:01 2.5 MG Ipratropium [place] 0.5 mg Q4HR NEB 05/28/24 02:00 05/30/24 15:01 0.5 MG Vancomycin HCl 0 ml @ 0 mls/hr UD IV 05/27/24 22:45 Diagnostic Test (Pha) 1 strip ACHS 05/28/24 07:00 05/30/24 12:51 1 STRIP Insulin Human Regular ACHS SC 05/28/24 07:00 05/30/24 12:57 2 UNITS Dextrose 50 ml UD PRN IV 05/28/24 03:30 Ergocalciferol 50,000 unit Q7D PO 05/28/24 03:30 05/30/24 10:56 50,000 UNIT Sevelamer HCl 800 mg TIDWM PO 05/28/24 12:00 05/30/24 12:50 800 MG Apixaban 5 mg BID PO 05/28/24 22:00 05/30/24 10:56 5 MG Hydralazine HCl 10 mg Q6HP PRN IV 05/28/24 21:15 Meropenem 50 ml @ 17 mls/hr DAILY IV 05/29/24 15:00 05/30/24 10:57 17 MLS/HR Gabapentin 100 mg BID PO 05/29/24 22:00 05/30/24 10:57 100 MG Losartan Potassium 50 mg DAILY PO 05/30/24 10:00 05/30/24 10:56 50 MG Morphine Sulfate 2 mg Q6HR PRN IV 05/30/24 09:30 05/30/24 11:00 2 MG Pantoprazole Sodium 40 mg DAILY@0600 PO 05/30/24 09:30 05/30/24 10:56 40 MG Calcium Carbonate 500 mg TIDWM PO 05/30/24 12:00 05/30/24 12:50 500 MG Examination General examination- awake alert, , conversant HEENT- PEERLA, no acute nasal discharge Cardiovascular- S1-S2 audible, rate and rhythm regular, no murmur Respiratory-bilateral lung crackles++ Gastrointestinal-nontender, bowel sound+. Nondistended Musculoskeletal-no acute joint swelling or tenderness or redness upper extremity and Lower extremity- edema+, lower extremity lactulose skin, bilateral lower extremity afebrile pulse. Right index finger red, swollen, tender, redness spreading to the dorsum of the right hand Neurological- cranial nerves intact, no acute dysarthria or dysphagia Psychiatry- denies depression or SI or HI Skin- no acute rash or purpura laboratory and microbiology Laboratory Tests 05/30/24 06:27 Test 05/30/24 06:27 Range/Units Serum Glucose 112 H 74-106 mg/dL Problem List/Assessment/Plan Problem List/Assessment/Plan #Acute on chronic hypoxic respiratory failure likely due to acute on chronic heart failure/acute exacerbation of COPD/fluid overload due to ESRD - CXR- Cardiomegaly with pulmonary findings either consistent with chronic pulmonary disease or congestive failure. -please continue with [place] O2 to maintain SpO2 more than 90% -continue nebulization as prescribed -on 05/29/2024 discontinued ceftriaxone 1 g IV daily and ordered meropenem 500 mg IV daily -continue IV vancomycin as per pharmacy protocol -strict intake output chart -avoid nephrotoxic drugs -nephrology consult reviewed and appreciated -hemodialysis as per Nephrology recommendation #Acute exacerbation of COPD/fluid overload likely due to ESRD - Cardiomegaly with pulmonary findings either consistent with chronic pulmonary disease or congestive failure. -please continue with [place] O2 to maintain SpO2 more than 90% -continue nebulization as prescribed --on 05/29/2024 discontinued ceftriaxone 1 g IV daily and ordered meropenem 500 mg IV daily -continue IV vancomycin as per pharmacy protocol -strict intake output chart -avoid nephrotoxic drugs -nephrology consult reviewed and appreciated - hemodialysis as per Nephrology recommendation-Hemodialysis M/W/F- last hemodialysis 05/29 #Pulmonary edema likely due to ESRD, patient missed last 2 hemodialysis - Cardiomegaly with pulmonary findings either consistent with chronic pulmonary disease or congestive failure. --nephrology consult reviewed and appreciated - hemodialysis as per Nephrology recommendation-Hemodialysis M/W/F- last hemodialysis 05/29 -avoid nephrotoxic drugs #Cellulitis of the right index finger staining to the dorsum of hand -pending orthopedic consult -CT head and- Mild soft tissue edema /inflammatory changes involving the 2nd digit. -on 05/29/2024 discontinued ceftriaxone 1 g IV daily and continue meropenem 500 mg IV daily -continue vancomycin as per pharmacy # Acute exacerbation of CHF - x-ray revealed cardiomegaly with pulmonary vascular congestion - BNP is elevated - Lasix 40 mg IV daily - Continue carvedilol 6.25 mg b.i.d. - ECHO [id number]-Kvoeda left ventricular size and dimension. Normal left ventricular systolic function estimated ejection fraction 55%. There is a grade one diastolic dysfunction. Normal right ventricular size and dimension. Normal left ventricular systolic function. Ofxb-vj-oybxrgpgys elevated right ventricular systolic pressure 40 mm of mercury #Bilateral leg edema likely due to ESRD/CHF -duplex arterial study of the lower extremity negative for significant stenosis -continue hemodialysis as recommended # History of paroxysmal atrial fibrillation with secondary hypercoagulable state - [id number] score 4 - continue Eliquis 5 mg p.o. b.i.d. except hold it for dialysis until after. # PUD -continue pantoprazole 40 mg IV daily # Hyperkalemia -K 5.2>5.3>4.7 - Hyperkalemia protocol management - Lokelma 10 mg p.o. t.i.d. #Hyperphosphatemia - serum phos 7.4> 6.5 -continue sevelamer 800 mg p.o. t.i.d. # Type 2 diabetes mellitus, hemoglobin A1c 6.1 - Mild sliding scale of insulin # Vitamin D deficiency - Vitamin D 67560 units Q 7D # History of coronary artery disease - Aspirin 81 mg daily and atorvastatin 20 mg at HS # ESRD on hemodialysis -- missed last 2 dialysis in Saturday and Saturday -nephrology recommendation reviewed and appreciated. -as per patient patient gets hemodialysis on Saturday, Saturday, Saturday. -avoid nephrotoxic drugs - serum creatinine 8.04--> 8.38, BUN 65 - serum phosphorus 7.4 mg/dl - serum calcium 7.9 mg/dl - PTH 1081.8 mg/dL - hemodialysis done on 05/28/2024 with the removal of 3000 mL of fluid creatinine improved 6.41 and BUN to 46. - patients leg edema almost resolved and improved breath sounds with decreased crackles. - avoid nephrotoxic medication Goals of care/advance care planning; FULL CODE; discussed with the patient PUD prophylaxis: Pantoprazole DVT prophylaxis: On Eliquis Plan discussed with Dr. Chase,,, nursing staff, patient Total time spent on patient evaluation, chart review, assessment and plan, discussion discussion >20 minutes Plan discussed with: Patient Plan discussed with: Patient, Daughter (RN), Other My Orders My Orders Orders - PATRICIA JARAMILLO RESIDENT Procedure Category Date Status Time Morphine Sulfate PHA 05/30/24 In Process Injection 09:30 Pantoprazole Tablet PHA 05/30/24 In Process (Protonix Tablet) 09:30 Calcium Carbonate PHA 05/30/24 In Process (Tums) 12:00 Date of Service: May 30, 2024 Billing Provider: RADHA CHASE MD Common Visit Codes: [id number] INP/OBS CARE(HIGH) PATRICIA JARAMILLO RESIDENT May 30, 2024 16:29 RADHA CHASE MD May 30, 2024 20:44
[2024-05-30] MEDS: VANCOMYCIN 500 MG in D5W 5% 100 ML IV ONE (18:14)
[2024-05-31] VITALS (16 sets, daily range): BP systolic 131–183; BP diastolic 43–71; PULSE 62–81; RESP 16–20; TEMP 97.7–98.6; O2SAT 96–100
[2024-05-31 07:50] LABS: Basophils # (auto) 0.1 10 ^3/uL (0-0.2); Basophils % (auto) 1.4 % (0.0-2.0); Eosinophils # (auto) 0.4 10 ^3/uL (0-0.8); Eosinophils % (auto) 6.8 % (0.0-7.0); Hematocrit 28.8 % (36.0-46.0); Hemoglobin 9.4 g/dL (12.2-16.2); Lymphocytes # (auto) 0.7 10 ^3/uL (0.4-5.4); Mean Corpuscular Hemoglobin 30.2 pg (28.0-32.0); Mean Corpuscular Hgb Conc. 32.6 g/dL (32.0-36.0); Mean Corpuscular Volume 92.7 fL (80.0-100.0); Monocytes # (auto) 0.6 10 ^3/uL (0-1.3); Neutrophils # (auto) 3.8 10 ^3/uL (1.6-8.6); Neutrophils % (auto) 68.8 % (37.0-80.0); Platelet Count (auto) 111 10^3/uL (140-450); Red Blood Cells 3.11 10^6/uL (4.0-5.20); Red Cell Distribution Width 14.8 % (11.8-14.3); White Blood Cell 5.5 10^3/uL (4.4-10.8)
[2024-05-31 07:59] LABS: Anion Gap 11 (5-15); Carbon Dioxide 27 mmol/L (20-31); Chloride 96 mmol/L (98-107); Potassium 4.7 mmol/L (3.5-5.1); Sodium 134 mmol/L (136-145)
[2024-05-31 08:00] LABS: Calcium 8.1 mg/dL (8.7-10.4)
[2024-05-31 08:04] LABS: Glucose 102 mg/dL (74-106)
[2024-05-31 08:05] LABS: BUN/Creatinine Ratio 6.1 (10.0-20.0); Blood Urea Nitrogen 42 mg/dL (9-23)
--- NOTE | 2024-05-31 09:32 | DVHINCON2 ---
Date of service: May 31, 2024 Reason for Consultation Right index finger abscess History of Present Illness 63 yo F with multiple medical issues with right hand erythema/drainage for 1 week. Patient states this has been improving since being in the hospital. Patient also admitted for cp/sob that is currently being treated. Past Medical History Past Medical History hypertension, COPD on home oxygen 3-5 L, ESRD on hemodialysis MWF, congestive heart failure, atrial fibrillation on Eliquis, type 2 DM TS mellitus, rheumatoid arthritis, osteoporosis Past Surgical History Left arm AV fistula Family History: Family history: Diabetes mellitus G8 MOTHER Family history: Osteoporosis G8 MOTHER Allergies: Coded Allergies: NO KNOWN ALLERGIES (Unverified , 05/12/12) Home Meds Reported Medications Apixaban Base (ELIQUIS) 2.5 Mg Tab, 2.5 MG PO BID, TAB 05/29/24 Alendronate Sodium (Alendronate Sodium) 70 Mg Tab, 70 MG PO Q7D, TAB 05/29/24 Montelukast Sodium (MONTELUKAST SODIUM) 10 Mg Tab, 1 TAB PO DAILY, TAB 05/29/24 Metoprolol Tartrate (Lopressor) 50 Mg Tab, 50 MG PO BID, TAB 05/29/24 Sevelamer Carbonate (Renvela) 800 Mg Tab, 2 TAB PO BIDBRS, MG 05/29/24 [id number]-Zlpyyfhthyzg-Jqlnw (Trelegy Ellipta 200-62.5-25 Mcg/INH) 1 Aer Aer, 1 PUFF IN DAILY, AER 05/29/24 Ipratropium-Albuterol (Ipratropium [place]/Albut) 1 Pebbles Pebbles, 1 PEBBLES NEB Q6HR, ML 05/29/24 Albuterol Sulfate (Albuterol Sulfate Hfa) 108 Mcg/Act Aer, 1 PUFF IN Q4HR PRN for SHORTNESS OF BREATH, AER 05/29/24 Pantoprazole Sodium Sesquihydr (Pantoprazole Sodium Dr) 40 Mg Tab, 40 MG PO DAILY, TAB 05/29/24 Gabapentin (Gabapentin) 100 Mg Cap, 100 MG PO BID, CAP 05/29/24 Losartan Potassium (Losartan Potassium) 100 Mg Tab, 1 TAB PO DAILY, #30 TAB 5 Refills Decrease to 50mg daily 10/03/16 Carvedilol (Carvedilol) 6.25 Mg Tab, 1 TAB PO DAILY, #180 TAB 1 Refill 10/03/16 Atorvastatin Calcium (Lipitor) 20 Mg Tab, 1 TAB PO DAILY, #90 TAB 1 Refill 10/03/16 Potassium Chloride (POTASSIUM CHLORIDE CR) 10 Meq Tb, 2 TAB PO BID, #30 TAB 5 Refills 05/24/16 Aspirin (Asa) 81 Mg Ch, 81 MG PO DAILY 05/12/12 Discontinued Reported Medications Gabapentin (Gabapentin) 600 Mg Tab, 1 TAB PO TID, #90 TAB 3 Refills 10/03/16 Current Medications Current Medications Medications (Trade) Dose Ordered Sig/Mirna Route PRN Reason Start Time Stop Time Status Last Admin Losartan Potassium (Cozaar Tablet) 50 mg DAILY PO 05/30/24 10:00 05/30/24 10:56 Morphine Sulfate 2 mg Q6HR PRN IV PAIN SCALE 7 THRU 10 05/30/24 09:30 05/30/24 20:17 Pantoprazole Sodium (Protonix Tablet) 40 mg DAILY@0600 PO 05/30/24 09:30 05/31/24 06:07 Pantoprazole Sodium (Protonix) 40 mg DAILY IV 05/30/24 10:00 05/30/24 09:46 DC Calcium Carbonate (Tums) 500 mg TIDWM PO 05/30/24 12:00 05/31/24 07:56 Review of Systems as per HPI Vital Signs Vital Signs Date Time Temp Pulse Resp B/P (MAP) Pulse Ox O2 Delivery O2 Flow Rate FiO2 05/31/24 08:57 73 159/74 05/31/24 07:08 16 100 05/31/24 07:02 Nasal Cannula* 4 36 05/31/24 05:00 97.7 97.7 Physical Exam NAD RUE: + abscess at index finger middle to distal phalanx draining at extensor side erythema to prox phalanx FROM Labs/Diagnostic Data Labs Test 05/31/24 07:08 05/30/24 21:19 05/30/24 06:27 05/29/24 07:40 Range/Units White Blood Count 5.5 4.4-10.8 10^3/uL Red Blood Count 3.11 L 4.0-5.20 10^6/uL Hemoglobin 9.4 L 12.2-16.2 g/dL Hematocrit 28.8 L 36.0-46.0 % Mean Corpuscular Volume 92.7 80.0-100.0 fL Mean Corpuscular Hemoglobin 30.2 28.0-32.0 pg Mean Corpuscular Hemoglobin Concent 32.6 32.0-36.0 g/dL Red Cell Distribution Width 14.8 H 11.8-14.3 % Platelet Count 111 L 140-450 10^3/uL Mean Platelet Volume 8.5 6.9-10.8 fL Neutrophils (%) (Auto) 68.8 37.0-80.0 % Lymphocytes (%) (Auto) 12.0 10.0-50.0 % Monocytes (%) (Auto) 11.0 0.0-12.0 % Eosinophils (%) (Auto) 6.8 0.0-7.0 % Basophils (%) (Auto) 1.4 0.0-2.0 % Neutrophils # (Auto) 3.8 1.6-8.6 10 ^3/uL Lymphocytes # (Auto) 0.7 0.4-5.4 10 ^3/uL Monocytes # (Auto) 0.6 0-1.3 10 ^3/uL Eosinophils # (Auto) 0.4 0-0.8 10 ^3/uL Basophils # (Auto) 0.1 0-0.2 10 ^3/uL Nucleated Red Blood Cells 0.0 % Sodium Level 134 L 136-145 mmol/L Potassium Level 4.7 3.5-5.1 mmol/L Chloride Level 96 L 98-107 mmol/L Carbon Dioxide Level 27 20-31 mmol/L Anion Gap 11 5-15 Blood Urea Nitrogen 42 H 9-23 mg/dL Creatinine 6.91 H 0.550-1.02 mg/dL Glomerular Filtration Rate Calc 6 >90 mL/min BUN/Creatinine Ratio 6.1 L 10.0-20.0 Serum Glucose 102 74-106 mg/dL Calcium Level 8.1 L 8.7-10.4 mg/dL POC Glucose 165 H 70-106 mg/dl Differential Total Cells Counted 100.0 100 Neutrophils % (Manual) 78 37.0-80.0 Band Neutrophils % (Manual) 4 Lymphocytes % (Manual) 14 10.0-50.0 Monocytes % (Manual) 4 0-12 Eosinophils % (Manual) 0 0-7 Basophils % (Manual) 0 0.0-2.0 Metamyelocytes % (manual) 0 Myelocytes % (Manual) 0 Promyelocytes % (Manual) 0 Blast Cells % (Manual) 0 Reactive Lymphocytes 0 Platelet Estimate Decreased Magnesium Level 2.4 1.6-2.6 mg/dL Random Vancomycin Level 17.7 H 5-10 ug/mL Phosphorus Level 6.5 H 2.4-5.1 mg/dL Test 05/28/24 16:27 05/28/24 09:20 05/27/24 22:54 05/27/24 20:46 Range/Units Total Bilirubin 0.2 0.2-1.0 mg/dL Aspartate Amino Transferase (AST) < 8 L 13-40 U/L Alanine Aminotransferase (ALT) 10 7-40 U/L Alkaline Phosphatase 171 H 46-116 U/L Total Protein 6.8 5.7-8.2 g/dL Albumin 3.8 3.2-4.8 g/dL Parathyroid Hormone (Intact) 1081.8 H 18.4-80.1 pg/mL Prothrombin Time 11.2 9.3-11.8 sec Prothrombin Time INR 1.06 0.9-1.15 Activated Partial Thromboplast Time 35.7 H 24.5-34.5 SEC Hemoglobin A1c 6.1 H <5.7 % A1C Vitamin B12 Level 669 211-911 pg/mL Vitamin D 25-Hydroxy 17.8 L 30.0-100 ng/mL Influenza Type A Antigen Negative Negative Influenza Type B Antigen Negative Negative SARS-CoV-2 Antigen (Rapid) Negative NEGATIVE Test 05/27/24 18:38 05/27/24 18:34 05/27/24 17:44 Range/Units Troponin I High Sensitivity 17 </=34 ng/L Thyroid Stimulating Hormone (TSH) 1.94 0.55-4.78 uIU/mL Large Platelets Few B-Type Natriuretic Peptide 483.63 0-100 pg/mL Plan/Recommendation 63 yo F with multiple medical issues with a draining right index finger extensor abscess 1. Warm soaks TID 2. cont abx 3. pain control 4. no need for surgery as abscess is opened already Plan discussed with: Patient JERSON KOLB MD May 31, 2024 09:32
--- NOTE | 2024-05-31 15:06 | DVHPN2 ---
Progress Note Date Seen: May 31, 2024 Medical Necessity Reason Pt with a Central, PICC or Fol: No Subjective Review of Systems Pt reports she feels well. Patient reports: No new complaints, Feels better Objective vital signs Vital Sign Date Time Temp Pulse Resp B/P (MAP) Pulse Ox O2 Delivery O2 Flow Rate FiO2 05/31/24 14:43 79 16 100 05/31/24 14:37 Nasal Cannula 4.0 05/31/24 14:37 36 05/31/24 09:28 159/74 05/31/24 09:00 98.6 98.6 Total Intake and Output 05/30/24 05/30/24 05/31/24 15:00 23:00 07:00 Intake Total 50 ml 290 ml 180 ml Output Total 0 ml Balance 50 ml 290 ml 180 ml medications Current Medications Medications Dose Ordered Sig/Mirna Route Start Time Stop Time Status Last Admin Dose Admin Sodium Chloride 10 ml Q8HR IV 05/28/24 06:00 05/31/24 12:02 10 ML Acetaminophen 325 mg Q4HP PRN PO 05/27/24 22:15 Acetaminophen/ Hydrocodone Bitart 1 tab Q4HP PRN PO 05/27/24 22:15 05/30/24 08:29 1 TAB Ondansetron HCl 4 mg Q4HP PRN IV 05/27/24 22:15 05/30/24 20:25 4 MG Aspirin 81 mg DAILY PO 05/28/24 10:00 05/31/24 09:27 81 MG Atorvastatin Calcium 20 mg DAILY PO 05/28/24 10:00 05/31/24 09:27 20 MG Carvedilol 6.25 mg BIDWM PO 05/28/24 08:00 05/31/24 07:57 6.25 MG Albuterol 2.5 mg Q4HR NEB 05/28/24 02:00 05/31/24 14:37 2.5 MG Ipratropium [place] 0.5 mg Q4HR NEB 05/28/24 02:00 05/31/24 14:37 0.5 MG Vancomycin HCl 0 ml @ 0 mls/hr UD IV 05/27/24 22:45 Diagnostic Test (Pha) 1 strip ACHS 05/28/24 07:00 05/31/24 11:28 1 STRIP Insulin Human Regular ACHS SC 05/28/24 07:00 05/31/24 11:38 2 UNITS Dextrose 50 ml UD PRN IV 05/28/24 03:30 Ergocalciferol 50,000 unit Q7D PO 05/28/24 03:30 05/30/24 10:56 50,000 UNIT Sevelamer HCl 800 mg TIDWM PO 05/28/24 12:00 05/31/24 12:02 800 MG Apixaban 5 mg BID PO 05/28/24 22:00 05/31/24 09:27 5 MG Hydralazine HCl 10 mg Q6HP PRN IV 05/28/24 21:15 Meropenem 50 ml @ 17 mls/hr DAILY IV 05/29/24 15:00 05/31/24 09:27 17 MLS/HR Gabapentin 100 mg BID PO 05/29/24 22:00 05/31/24 09:35 100 MG Losartan Potassium 50 mg DAILY PO 05/30/24 10:00 05/31/24 09:28 50 MG Morphine Sulfate 2 mg Q6HR PRN IV 05/30/24 09:30 05/30/24 20:17 2 MG Pantoprazole Sodium 40 mg DAILY@0600 PO 05/30/24 09:30 05/31/24 06:07 40 MG Calcium Carbonate 500 mg TIDWM PO 05/30/24 12:00 05/31/24 12:02 500 MG Sildenafil Citrate 20 mg DAILY PO 06/01/24 10:00 Examination General: Appears stated age, in no acute distress Pulm: Diminished bilaterally CVS: RRR, normal S1 and S2 Ext: + BLE edema Neuro: Alert and oriented x4 laboratory and microbiology Laboratory Tests 05/31/24 07:08 Test 05/31/24 07:08 Range/Units Serum Glucose 102 74-106 mg/dL Labs and/or images reviewed: Labs reviewed by me Problem List/Assessment/Plan Problem List/Assessment/Plan ESRD on Hemodialysis Hyperkalemia-resolved hyperphosphatemia type 2 diabetes mellitus acute on chronic congestive heart failure ? HFpEF paroxysmal atrial fibrillation COPD vitamin-D deficiency REC Hemodialysis M/W/F- Next hemodialysis 06/01 Monitor chemistry panel Continue sevelamer Monitor I&O Will continue to follow Plan discussed with: Patient MYERSCARLOS ENRIQUE AREVALOPILI MANJARREZ May 31, 2024 15:06
[2024-05-31] MEDS ORDERED: SILDENAFIL CITRATE 20 MG TAB PO SCH (17:00)
--- NOTE | 2024-05-31 17:54 | DVHPNRES ---
Progress Note Date Seen: May 31, 2024 Resident Creating Document: KO FRANKEL RESIDENT Has the PT tested + for MRSA If YES, has PT been informed?: No Medical Necessity Reason Pt with a Central, PICC or Fol: No Subjective Review of Systems Patient is 63 years old female with past medical history not limited to COPD on home oxygen [place] O2 3-4 liter/minute, ESRD on hemodialysis 3 times per week, Saturday, Saturday and Saturday, congestive heart failure, hypertension, paroxysmal atrial fibrillation on Eliquis, diabetes mellitus type 2, hypertension, rheumatoid arthritis, osteoporosis, chronic back pain came with a complaint of chest pain and shortness of breaths for 3 days. Patient patient woke up from sleep 3 days before and feeling weak and tired. She started having chest pain, central in nature, sharp, pressure-like, 10/10, radiating to the back at times, pain was intermittent in nature. Patient also had short of breath for the same duration which increased with exertion, relieved with rest and hemodialysis. Patient also endorsed feeling generalized weakness and wheezing for last 1 week. As per patient's patient's legs are chronically swollen. Patient also reported swelling of the right index finger that started 3-4 days back, painful, tender to touch. Per patient she missed her dialysis on last Saturday and Saturday as she was not feeling good, feeling tired. Patient denied any fever, palpitation, dizziness, change in vision, diarrhea. Echo showed an LVEF of 55%. Patient was admitted for further assessment and management. Patient seen and examined at bedside. Right index finger looks less erythematous and less swell compared to previous days. Ortho team saw and evaluated the patient and determined that there is no need of drainage or any procedure at this time since the wound is slightly open it already. We will continue IV antibiotics at this time with IV meropenem and vancomycin. We will continue current medical management and perform hemodialysis tomorrow. We restarted sildenafil 20 mg q.d. which patient take at home for pulmonary hypertension. Discontinued nitroglycerin to decrease side effect of hypotension combined with sildenafil. ROS Constitutional: Denies weight loss, fever and chills. HEENT: Denies changes in vision and hearing. Respiratory: Still reports mild shortness of breath and denies cough Cardiovascular: Denies chest discomfort or palpitations GI: Denies abdominal pain, nausea, vomiting and diarrhea. : Denies dysuria and urinary frequency. Musculoskeletal: Reports moderate to severe pain in the right index finger but states that swelling and erythema has decreased. Denies myalgias and joint pain Skin: Denies rash and pruritus. Neurological: Denies dizziness, headache, vision or hearing problems Objective vital signs Vital Sign Date Time Temp Pulse Resp B/P (MAP) Pulse Ox O2 Delivery O2 Flow Rate FiO2 05/31/24 17:28 98.6 72 18 165/71 (102) 99 98.6 05/31/24 14:37 Nasal Cannula 4.0 05/31/24 14:37 36 Total Intake and Output 05/30/24 05/30/24 05/31/24 15:00 23:00 07:00 Intake Total 50 ml 290 ml 180 ml Output Total 0 ml Balance 50 ml 290 ml 180 ml medications Current Medications Medications Dose Ordered Sig/Mirna Route Start Time Stop Time Status Last Admin Dose Admin Sodium Chloride 10 ml Q8HR IV 05/28/24 06:00 05/31/24 12:02 10 ML Acetaminophen 325 mg Q4HP PRN PO 05/27/24 22:15 Acetaminophen/ Hydrocodone Bitart 1 tab Q4HP PRN PO 05/27/24 22:15 05/30/24 08:29 1 TAB Ondansetron HCl 4 mg Q4HP PRN IV 05/27/24 22:15 05/31/24 16:07 4 MG Aspirin 81 mg DAILY PO 05/28/24 10:00 05/31/24 09:27 81 MG Atorvastatin Calcium 20 mg DAILY PO 05/28/24 10:00 05/31/24 09:27 20 MG Carvedilol 6.25 mg BIDWM PO 05/28/24 08:00 05/31/24 07:57 6.25 MG Albuterol 2.5 mg Q4HR NEB 05/28/24 02:00 05/31/24 14:37 2.5 MG Ipratropium [place] 0.5 mg Q4HR NEB 05/28/24 02:00 05/31/24 14:37 0.5 MG Vancomycin HCl 0 ml @ 0 mls/hr UD IV 05/27/24 22:45 Diagnostic Test (Pha) 1 strip ACHS 05/28/24 07:00 05/31/24 11:28 1 STRIP Insulin Human Regular ACHS SC 05/28/24 07:00 05/31/24 11:38 2 UNITS Dextrose 50 ml UD PRN IV 05/28/24 03:30 Ergocalciferol 50,000 unit Q7D PO 05/28/24 03:30 05/30/24 10:56 50,000 UNIT Sevelamer HCl 800 mg TIDWM PO 05/28/24 12:00 05/31/24 12:02 800 MG Apixaban 5 mg BID PO 05/28/24 22:00 05/31/24 09:27 5 MG Hydralazine HCl 10 mg Q6HP PRN IV 05/28/24 21:15 Meropenem 50 ml @ 17 mls/hr DAILY IV 05/29/24 15:00 05/31/24 09:27 17 MLS/HR Gabapentin 100 mg BID PO 05/29/24 22:00 05/31/24 09:35 100 MG Losartan Potassium 50 mg DAILY PO 05/30/24 10:00 05/31/24 09:28 50 MG Morphine Sulfate 2 mg Q6HR PRN IV 05/30/24 09:30 05/31/24 16:06 2 MG Pantoprazole Sodium 40 mg DAILY@0600 PO 05/30/24 09:30 05/31/24 06:07 40 MG Calcium Carbonate 500 mg TIDWM PO 05/30/24 12:00 05/31/24 12:02 500 MG Sildenafil Citrate 20 mg DAILY PO 06/01/24 10:00 Examination Physical Examination General: Patient alert and oriented in person, place and time. Patient following commands. HEENT: Normocephalic, atraumatic, moist mucous membranes Respiratory/pulmonary: There are crackles on bilateral lung bases but no wheezes at this time. Cardiovascular: Normal regular heart sounds S1 and S2 with no associated murmurs Abdomen: Abdomen nondistended, there is no pain to palpation in any of the abdominal quadrants, no palpable masses. Extremities: There is no peripheral edema present at the lower extremities. Peripheral Pulses: 3+ Radial (R). 3+ Radial (L). 3+ Dorsalis pedis (R). 3+ Dorsalis pedis(L) Skin: No rashes or pruritus, there is no sacral edema present at this time. Neurological: Intact cranial nerves with no focal neurologic deficits laboratory and microbiology Laboratory Tests 05/31/24 07:08 Test 05/31/24 07:08 Range/Units Serum Glucose 102 74-106 mg/dL Problem List/Assessment/Plan Problem List/Assessment/Plan Assessment/Plan Acute on chronic hypoxic respiratory failure likely due to acute on chronic heart failure due to volume overload due to ESRD - CXR- Cardiomegaly with pulmonary findings either consistent with chronic pulmonary disease or congestive failure. -currently on 4 L of oxygen through nasal cannula -continue nebulization as prescribed -continue IV meropenem -continue IV vancomycin as per pharmacy protocol -strict intake output chart -avoid nephrotoxic drugs -nephrology consult reviewed and appreciated -hemodialysis as per Nephrology recommendation Possible Acute COPD exacerbation - Cardiomegaly with pulmonary findings either consistent with chronic pulmonary disease or congestive failure. -please continue with [place] O2 to maintain SpO2 more than 90% -continue nebulization as prescribed -continue IV vancomycin as per pharmacy protocol Pulmonary edema likely due to ESRD, patient missed last 2 hemodialysis - Cardiomegaly with pulmonary findings either consistent with chronic pulmonary disease or congestive failure. --nephrology consult reviewed and appreciated - hemodialysis as per Nephrology recommendation-Hemodialysis M/W/F, Will perform HD tomorrow -avoid nephrotoxic drugs Cellulitis of the right index finger staining to the dorsum of hand -orthopedic evaluated the patient and determined that there is no need for drainage since wounds slightly open at this time. -CT head and- Mild soft tissue edema /inflammatory changes involving the 2nd digit. -continue on IV meropenem and vancomycin -monitor for acute changes. Acute Diastolic heart failure HFpEF 55% - x-ray revealed cardiomegaly with pulmonary vascular congestion - BNP is elevated - Lasix 40 mg IV daily - Continue carvedilol 6.25 mg b.i.d. - echo showed an LVEF of 55% with normal cardiac valves and no pericardial effusion. Bilateral leg edema likely due to ESRD/CHF -duplex arterial study of the lower extremity negative for significant stenosis -continue hemodialysis as recommended History of paroxysmal atrial fibrillation with secondary hypercoagulable state - [id number] score 4 - continue Eliquis 5 mg p.o. b.i.d. except hold it for dialysis until after. PUD -continue pantoprazole 40 mg IV daily Hyperkalemia -today potassium was 4.7 Hyperphosphatemia - serum phos 7.4> 6.5 -continue sevelamer 800 mg p.o. t.i.d. Type 2 diabetes mellitus, hemoglobin A1c 6.1 - Mild sliding scale of insulin Vitamin D deficiency - Vitamin D 86111 units Q 7D History of coronary artery disease - Aspirin 81 mg daily and atorvastatin 20 mg at HS ESRD on hemodialysis -missed last 2 dialysis in Saturday and Saturday -nephrology on board -today creatinine was 6.91 and BUN 42 -patient will be scheduled for hemodialysis tomorrow Goals of care discussed with the patient at bedside for >23min, FULL CODE Plan discussed with Dr. Chase Plan discussed with: Patient My Orders My Orders Orders - KO FRANKEL Procedure Category Date Status Time Sildenafil Citrate PHA 06/01/24 In Process ([facility]) 10:00 Date of Service: May 31, 2024 Billing Provider: RADHA CHASE MD Common Visit Codes: [id number] INP/OBS CARE(HIGH) KO FRANKEL May 31, 2024 17:54 RADHA CHASE MD Jun 01, 2024 22:00
[2024-05-31] MEDS: hydrALAZINE HCL 20 MG/ML VL IV PRN (21:05)
[2024-06-01] VITALS (20 sets, daily range): BP systolic 109–169; BP diastolic 49–68; PULSE 60–86; RESP 14–22; TEMP 97.2–98.8; O2SAT 94–100
[2024-06-01 08:18] LABS: Anion Gap 11 (5-15); Calcium 8.3 mg/dL (8.7-10.4); Carbon Dioxide 27 mmol/L (20-31); Chloride 95 mmol/L (98-107); Potassium 5.1 mmol/L (3.5-5.1); Sodium 133 mmol/L (136-145)
[2024-06-01 08:24] LABS: BUN/Creatinine Ratio 6.3 (10.0-20.0); Blood Urea Nitrogen 50 mg/dL (9-23); Magnesium 2.5 mg/dL (1.6-2.6)
[2024-06-01 08:26] LABS: Basophils # (auto) 0.1 10 ^3/uL (0-0.2); Basophils % (auto) 2.1 % (0.0-2.0); Eosinophils # (auto) 0.4 10 ^3/uL (0-0.8); Eosinophils % (auto) 6.5 % (0.0-7.0); Hematocrit 31.7 % (36.0-46.0); Hemoglobin 10.2 g/dL (12.2-16.2); Lymphocytes # (auto) 0.7 10 ^3/uL (0.4-5.4); Mean Corpuscular Hemoglobin 30.1 pg (28.0-32.0); Mean Corpuscular Volume 93.9 fL (80.0-100.0); Monocytes # (auto) 0.6 10 ^3/uL (0-1.3); Monocytes % (auto) 9.8 % (0.0-12.0); Neutrophils # (auto) 4.4 10 ^3/uL (1.6-8.6); Neutrophils % (auto) 70.6 % (37.0-80.0); Nucleated Red Blood Cells % 0.1 %; Platelet Count (auto) 129 10^3/uL (140-450); Red Blood Cells 3.38 10^6/uL (4.0-5.20); Red Cell Distribution Width 14.9 % (11.8-14.3); White Blood Cell 6.3 10^3/uL (4.4-10.8)
[2024-06-01 08:32] LABS: Glucose 106 mg/dL (74-106)
[2024-06-01] MEDS: SILDENAFIL CITRATE 20 MG TAB PO SCH (10:00)
--- NOTE | 2024-06-01 11:50 | DVHPN2 ---
Progress Note Date Seen: Jun 01, 2024 Resident Creating Document: SUNIL FOSTERCARYJAKE RESIDENT Has the PT tested + for MRSA If YES, has PT been informed?: No Medical Necessity Reason Pt with a Central, PICC or Fol: No Subjective Review of Systems Patient is a 63-year-old female with a past medical history of hypertension, COPD on home oxygen 3-5 L, ESRD on hemodialysis MWF, congestive heart failure, atrial fibrillation on Eliquis, type 2 DM TS mellitus, rheumatoid arthritis, osteoporosis presented to the ED with a chief complaint of chest pain for 3 days prior to admission. Patient reported that she was scheduled dialysis on Saturday and Saturday and started feeling shortness of breath and chest pain localized substernal, sharp and severe in intensity who, patient reported associated shortness of breath and orthopnea. Patient denied cough dizziness, diaphoresis, abdominal pain, any change in bowel and bladder habit. Patient also reported pain in the right hand with redness of the right index finger for the last 3 days. Review of Systems Patient seen and examined in the bedside. Patient is alert and oriented to time, place and person. Patient is currently on 4 L oxygen per minute and SpO2 98%, blood pressure 156/70 mmHg, pulse 90/Min regular. Patient reports pain in the right hand index finger radiating towards the rest. c/o nausea Objective vital signs Vital Sign Date Time Temp Pulse Resp B/P (MAP) Pulse Ox O2 Delivery O2 Flow Rate FiO2 06/01/24 09:57 169/68 06/01/24 09:52 71 18 99 06/01/24 09:46 Nasal Cannula* 4 36 06/01/24 08:33 98.1 98.1 Total Intake and Output 05/31/24 05/31/24 06/01/24 15:00 23:00 07:00 Intake Total 50 ml 875 ml 100 ml Output Total 0 ml Balance 50 ml 875 ml 100 ml medications Current Medications Medications Dose Ordered Sig/Mirna Route Start Time Stop Time Status Last Admin Dose Admin Sodium Chloride 10 ml Q8HR IV 05/28/24 06:00 06/01/24 06:12 10 ML Acetaminophen 325 mg Q4HP PRN PO 05/27/24 22:15 Acetaminophen/ Hydrocodone Bitart 1 tab Q4HP PRN PO 05/27/24 22:15 05/30/24 08:29 1 TAB Ondansetron HCl 4 mg Q4HP PRN IV 05/27/24 22:15 05/31/24 21:33 4 MG Aspirin 81 mg DAILY PO 05/28/24 10:00 06/01/24 09:55 81 MG Atorvastatin Calcium 20 mg DAILY PO 05/28/24 10:00 06/01/24 09:55 20 MG Carvedilol 6.25 mg BIDWM PO 05/28/24 08:00 06/01/24 08:21 6.25 MG Albuterol 2.5 mg Q4HR NEB 05/28/24 02:00 06/01/24 09:46 2.5 MG Ipratropium [place] 0.5 mg Q4HR NEB 05/28/24 02:00 06/01/24 09:46 0.5 MG Vancomycin HCl 0 ml @ 0 mls/hr UD IV 05/27/24 22:45 Diagnostic Test (Pha) 1 strip ACHS 05/28/24 07:00 06/01/24 11:49 1 STRIP Insulin Human Regular ACHS SC 05/28/24 07:00 06/01/24 11:49 2 UNITS Dextrose 50 ml UD PRN IV 05/28/24 03:30 Ergocalciferol 50,000 unit Q7D PO 05/28/24 03:30 05/30/24 10:56 50,000 UNIT Sevelamer HCl 800 mg TIDWM PO 05/28/24 12:00 06/01/24 08:21 800 MG Apixaban 5 mg BID PO 05/28/24 22:00 05/31/24 21:32 5 MG Hydralazine HCl 10 mg Q6HP PRN IV 05/28/24 21:15 05/31/24 21:05 10 MG Meropenem 50 ml @ 17 mls/hr DAILY IV 05/29/24 15:00 06/01/24 09:54 17 MLS/HR Gabapentin 100 mg BID PO 05/29/24 22:00 06/01/24 09:55 100 MG Losartan Potassium 50 mg DAILY PO 05/30/24 10:00 05/31/24 09:28 50 MG Morphine Sulfate 2 mg Q6HR PRN IV 05/30/24 09:30 06/01/24 00:00 2 MG Pantoprazole Sodium 40 mg DAILY@0600 PO 05/30/24 09:30 06/01/24 06:12 40 MG Calcium Carbonate 500 mg TIDWM PO 05/30/24 12:00 06/01/24 08:21 500 MG Sildenafil Citrate 20 mg DAILY PO 06/01/24 10:00 Examination Gen - no pallor, no icterus, no cyanosis, no clubbing, no LAD, no edema . Skin - Patients skin is warm and dry. HEENT - normocephalic, atraumatic, moist mucous membranes. Neck - full ROM, no LAD, no JVD Pulmonary - B/L breath sounds improved with minimal bibasilar crackles, no wheezing, no stridor. cardiovascular - normal S1,S2 heard. no murmurs heard. peripheral pulses normal radial 2+, pedal 2+. capillary refill normal <2 secs. GI - soft abdomen without tenderness to palpation. no hepatospleenomegaly. Bowel sounds+. Neurological - Patient is A/O X 3 . Bilateral upper extremity strength 5/5, bilateral lower extremity strength 5/5, no facial droop, normal speech, no tremor. Extremities- bilateral lower extremities have hyperpigmentation on the shins. Decreased sensation in the feet bilaterally. Left upper extremity AV fistula. laboratory and microbiology Laboratory Tests 06/01/24 07:15 Test 06/01/24 07:15 Range/Units Serum Glucose 106 74-106 mg/dL Problem List/Assessment/Plan Problem List/Assessment/Plan Assessment and plan # ESRD on hemodialysis - serum creatinine 7.89, BUN 50 - hemodialysis done on 05/28 with the removal of 3000 mL of fluid and on 05/29 with 2000 mL removed. - hemodialysis done on Friday 06/01. - strict I&Os - avoid nephrotoxic medication # Hyperkalemia - serum potassium 5.1 - hemodialysis done on 06/01 # hyperphosphatemia - serum phos 7.3 - patient is started on sevelamer 800 mg p.o. t.i.d. # Cellulitis of the right index finger - on IV vancomycin and ceftriaxone # acute on chronic congestive heart failure ? HFpEF # paroxysmal atrial fibrillation # COPD on home oxygen 3-5 L # type 2 diabetes mellitus, hemoglobin A1c 6.1% # vitamin-D deficiency Discussed with the patient for over 20 minutes. Full code. Plan discussed with Dr. Cabrera Plan discussed with: Patient LYDIA FOSTER Jun 01, 2024 11:50 GUERO CABRERA MD Jun 01, 2024 20:32
--- NOTE | 2024-06-01 13:41 | DVHPNRES ---
Progress Note Date Seen: Jun 01, 2024 Resident Creating Document: PATRICIA JARAMILLO RESIDENT Has the PT tested + for MRSA If YES, has PT been informed?: No Medical Necessity Reason Pt with a Central, PICC or Fol: No Subjective Review of Systems Patient is 63 years old female with past medical history not limited to COPD on home oxygen [place] O2 3-4 liter/minute, ESRD on hemodialysis 3 times per week, Saturday, Saturday and Saturday, congestive heart failure, hypertension, paroxysmal atrial fibrillation on Eliquis, diabetes mellitus type 2, hypertension, rheumatoid arthritis, osteoporosis, chronic back pain came with a complaint of chest pain and shortness of breaths for 3 days. Patient patient woke up from sleep 3 days before and feeling weak and tired. She started having chest pain, central in nature, sharp, pressure-like, 10/10, radiating to the back at times, pain was intermittent in nature. Patient also had short of breath for the same duration which increased with exertion, relieved with rest and hemodialysis. Patient also endorsed feeling generalized weakness and wheezing for last 1 week. As per patient's patient's legs are chronically swollen. Patient also endorsed swelling of the right index finger that started 3-4 days back, painful, tender to touch. Per patient she missed her dialysis on last Saturday and Saturday as she was not feeling good, feeling tired. Patient denied any fever, palpitation, dizziness, change in vision, diarrhea. Echo 2D revealedNormal left ventricular size and dimension. Normal left ventricular systolic function estimated ejection fraction 55%. There is a grade one diastolic dysfunction. Normal right ventricular size and dimension. Normal left ventricular systolic function. Tmhp-et-abzqlhgzlp elevated right ventricular systolic pressure 40 mm of mercury Normal biatrial size and dimension. The aortic valve is mildly thickened and sclerotic. The mitral valve is thickened and sclerotic. There is mild tricuspid valve regurgitation PMH-COPD on home oxygen [place] O2 3-4 liter/minute, ESRD on hemodialysis 3 times per week, Saturday, Saturday and Saturday, congestive heart failure, hypertension, paroxysmal atrial fibrillation on Eliquis, diabetes mellitus type 2, hypertension, rheumatoid arthritis, osteoporosis, chronic back pain PSH- cholecystectomy, tonsillectomy Allergy- NKDA Personal History/ Social History- lives with daughter and mom, nonalcoholic, nonsmoker, no drug abuser as per patient Patient was seen today at the bedside. Patient feeling better today Cardiovascular- deny palpitation Respiratory- denies cough Gastrointestinal- denies any rectal bleeding, nausea or vomiting Musculoskeletal-denies acute joint swelling or tenderness or redness Neurological- denies acute dysarthria, dysphagia, change in vision Psychiatry- denies depression or SI or HI Skin- denies acute rash or purpura Patient was seen today for clinical evaluation. Labs and chart reviewed. Patient's finger swelling has improved a little bit. Patient was seen by acid splicer, recommend she reviewed and appreciated. Statuspost orthopedic consult, no surgical intervention recommended. Patient was restarted on sildenafil 20 mg p.o. daily due to pulmonary hypertension and Nitroglycerin was discontinued to avoid hypotension. Patient is on meropenem and vancomycin, tolerating well, no side effect noted. Objective vital signs Vital Sign Date Time Temp Pulse Resp B/P (MAP) Pulse Ox O2 Delivery O2 Flow Rate FiO2 06/01/24 09:57 169/68 06/01/24 09:52 71 18 99 06/01/24 09:46 Nasal Cannula* 4 36 06/01/24 08:33 98.1 98.1 Total Intake and Output 05/31/24 05/31/24 06/01/24 15:00 23:00 07:00 Intake Total 50 ml 875 ml 100 ml Output Total 0 ml Balance 50 ml 875 ml 100 ml medications Current Medications Medications Dose Ordered Sig/Mirna Route Start Time Stop Time Status Last Admin Dose Admin Sodium Chloride 10 ml Q8HR IV 05/28/24 06:00 06/01/24 06:12 10 ML Acetaminophen 325 mg Q4HP PRN PO 05/27/24 22:15 Acetaminophen/ Hydrocodone Bitart 1 tab Q4HP PRN PO 05/27/24 22:15 05/30/24 08:29 1 TAB Ondansetron HCl 4 mg Q4HP PRN IV 05/27/24 22:15 05/31/24 21:33 4 MG Aspirin 81 mg DAILY PO 05/28/24 10:00 06/01/24 09:55 81 MG Atorvastatin Calcium 20 mg DAILY PO 05/28/24 10:00 06/01/24 09:55 20 MG Carvedilol 6.25 mg BIDWM PO 05/28/24 08:00 06/01/24 08:21 6.25 MG Albuterol 2.5 mg Q4HR NEB 05/28/24 02:00 06/01/24 09:46 2.5 MG Ipratropium [place] 0.5 mg Q4HR NEB 05/28/24 02:00 06/01/24 09:46 0.5 MG Vancomycin HCl 0 ml @ 0 mls/hr UD IV 05/27/24 22:45 Diagnostic Test (Pha) 1 strip ACHS 05/28/24 07:00 06/01/24 11:49 1 STRIP Insulin Human Regular ACHS SC 05/28/24 07:00 06/01/24 11:49 2 UNITS Dextrose 50 ml UD PRN IV 05/28/24 03:30 Ergocalciferol 50,000 unit Q7D PO 05/28/24 03:30 05/30/24 10:56 50,000 UNIT Sevelamer HCl 800 mg TIDWM PO 05/28/24 12:00 06/01/24 08:21 800 MG Apixaban 5 mg BID PO 05/28/24 22:00 05/31/24 21:32 5 MG Hydralazine HCl 10 mg Q6HP PRN IV 05/28/24 21:15 05/31/24 21:05 10 MG Meropenem 50 ml @ 17 mls/hr DAILY IV 05/29/24 15:00 06/01/24 09:54 17 MLS/HR Gabapentin 100 mg BID PO 05/29/24 22:00 06/01/24 09:55 100 MG Losartan Potassium 50 mg DAILY PO 05/30/24 10:00 05/31/24 09:28 50 MG Morphine Sulfate 2 mg Q6HR PRN IV 05/30/24 09:30 06/01/24 00:00 2 MG Pantoprazole Sodium 40 mg DAILY@0600 PO 05/30/24 09:30 06/01/24 06:12 40 MG Calcium Carbonate 500 mg TIDWM PO 05/30/24 12:00 06/01/24 08:21 500 MG Sildenafil Citrate 20 mg DAILY PO 06/01/24 10:00 Examination General examination- awake alert, , conversant HEENT- PEERLA, no acute nasal discharge Cardiovascular- S1-S2 audible, rate and rhythm regular, no murmur Respiratory-bilateral lung crackles++ Gastrointestinal-nontender, bowel sound+. Nondistended Musculoskeletal-no acute joint swelling or tenderness or redness upper extremity and Lower extremity- edema+, lower extremity lactulose skin, bilateral lower extremity afebrile pulse. Right index finger red, swollen, tender, redness spreading to the dorsum of the right hand Neurological- cranial nerves intact, no acute dysarthria or dysphagia Psychiatry- denies depression or SI or HI Skin- no acute rash or purpura laboratory and microbiology Laboratory Tests 06/01/24 07:15 Test 06/01/24 07:15 Range/Units Serum Glucose 106 74-106 mg/dL Problem List/Assessment/Plan Problem List/Assessment/Plan #Acute on chronic hypoxic respiratory failure likely due to acute on chronic heart failure/acute exacerbation of COPD - CXR- Cardiomegaly with pulmonary findings either consistent with chronic pulmonary disease or congestive failure. -please continue with [place] O2 to maintain SpO2 more than 90% -continue nebulization as prescribed -on 05/29/2024 discontinued ceftriaxone 1 g IV daily and ordered meropenem 500 mg IV daily -continue IV vancomycin as per pharmacy protocol -strict intake output chart -avoid nephrotoxic drugs -nephrology consult reviewed and appreciated -hemodialysis as per Nephrology recommendation #Acute exacerbation of COPD - Cardiomegaly with pulmonary findings either consistent with chronic pulmonary disease or congestive failure. -please continue with [place] O2 to maintain SpO2 more than 90% -continue nebulization as prescribed --on 05/29/2024 discontinued ceftriaxone 1 g IV daily and ordered meropenem 500 mg IV daily -continue IV vancomycin as per pharmacy protocol -strict intake output chart -avoid nephrotoxic drugs -nephrology consult reviewed and appreciated - hemodialysis as per Nephrology recommendation-Hemodialysis M/W/F- last hemodialysis 05/29 # acute on chronic Pulmonary edema likely due to ESRD, patient missed last 2 hemodialysis - Cardiomegaly with pulmonary findings either consistent with chronic pulmonary disease or congestive failure. --nephrology consult reviewed and appreciated - hemodialysis as per Nephrology recommendation-Hemodialysis M/W/F- last hemodialysis 05/29 -avoid nephrotoxic drugs #Cellulitis of the right index finger staining to the dorsum of hand -status post orthopedic consult, no surgical intervention was recommended at this moment -CT head and- Mild soft tissue edema /inflammatory changes involving the 2nd digit. -on 05/29/2024 discontinued ceftriaxone 1 g IV daily and continue meropenem 500 mg IV daily -continue vancomycin as per pharmacy # Acute exacerbation of CHF - x-ray revealed cardiomegaly with pulmonary vascular congestion - BNP is elevated - Lasix 40 mg IV daily - Continue carvedilol 6.25 mg b.i.d. - ECHO [id number] left ventricular size and dimension. Normal left ventricular systolic function estimated ejection fraction 55%. There is a grade one diastolic dysfunction. Normal right ventricular size and dimension. Normal left ventricular systolic function. Qqhj-eo-nkvpfaapcv elevated right ventricular systolic pressure 40 mm of mercury #Bilateral leg edema likely due to ESRD/CHF -duplex arterial study of the lower extremity negative for significant stenosis -continue hemodialysis as recommended # History of paroxysmal atrial fibrillation with secondary hypercoagulable state - [id number] score 4 - continue Eliquis 5 mg p.o. b.i.d. except hold it for dialysis until after. # ESRD on hemodialysis -nephrology recommendation reviewed and appreciated -continue hemodialysis as per schedule -avoid nephrotoxic drugs -monitor CBC, CMP # PUD -continue pantoprazole 40 mg IV daily # pulmonary hypertension Continue sildenafil 20 mg p.o. daily # Hyperkalemia -K 5.2>5.3>4.7 - Hyperkalemia protocol management - Lokelma 10 mg p.o. t.i.d. #Hyperphosphatemia - serum phos 7.4> 6.5 -continue sevelamer 800 mg p.o. t.i.d. # Type 2 diabetes mellitus, hemoglobin A1c 6.1 - Mild sliding scale of insulin # Vitamin D deficiency - Vitamin D 03136 units Q 7D # History of coronary artery disease - Aspirin 81 mg daily and atorvastatin 20 mg at HS Goals of care/advance care planning; FULL CODE; discussed with the patient PUD prophylaxis: Pantoprazole DVT prophylaxis: On Eliquis Plan discussed with Dr. Chase,,, nursing staff, patient Total time spent on patient evaluation, chart review, assessment and plan, discussion discussion >20 minutes Plan discussed with: Patient Plan discussed with: Patient, Other (RN) Date of Service: Jun 01, 2024 Billing Provider: RADHA CHASE MD Common Visit Codes: [id number] INP/OBS CARE(HIGH) PATRICIA JARAMILLO RESIDENT Jun 01, 2024 13:41 RADHA CHASE MD Jun 01, 2024 22:04
[2024-06-01] MEDS: VANCOMYCIN 500 MG in D5W 5% 100 ML IV ONE (17:47)
[2024-06-02] VITALS (15 sets, daily range): BP systolic 121–140; BP diastolic 45–56; PULSE 68–76; RESP 14–20; TEMP 97.6–98.4; O2SAT 96–100
[2024-06-02] MEDS: LACTULOSE 20Gm/30ML SOLN PO ONE (01:54)
[2024-06-02 07:16] LABS: Chloride 99 mmol/L (98-107); Potassium 4.8 mmol/L (3.5-5.1); Sodium 137 mmol/L (136-145)
[2024-06-02 07:17] LABS: Anion Gap 7 (5-15); Basophils # (auto) 0.1 10 ^3/uL (0-0.2); Basophils % (auto) 1.4 % (0.0-2.0); Calcium 8.8 mg/dL (8.7-10.4); Carbon Dioxide 31 mmol/L (20-31); Eosinophils # (auto) 0.4 10 ^3/uL (0-0.8); Eosinophils % (auto) 7.9 % (0.0-7.0); Hematocrit 30.4 % (36.0-46.0); Hemoglobin 9.8 g/dL (12.2-16.2); Lymphocytes # (auto) 0.7 10 ^3/uL (0.4-5.4); Lymphocytes % (auto) 12.1 % (10.0-50.0); Mean Corpuscular Hemoglobin 29.8 pg (28.0-32.0); Mean Corpuscular Hgb Conc. 32.3 g/dL (32.0-36.0); Mean Corpuscular Volume 92.2 fL (80.0-100.0); Monocytes # (auto) 0.6 10 ^3/uL (0-1.3); Monocytes % (auto) 11.1 % (0.0-12.0); Neutrophils # (auto) 3.9 10 ^3/uL (1.6-8.6); Neutrophils % (auto) 67.5 % (37.0-80.0); Nucleated Red Blood Cells % 0.1 %; Platelet Count (auto) 148 10^3/uL (140-450); Red Cell Distribution Width 14.7 % (11.8-14.3); White Blood Cell 5.7 10^3/uL (4.4-10.8)
[2024-06-02 07:22] LABS: BUN/Creatinine Ratio 5.6 (10.0-20.0); Blood Urea Nitrogen 32 mg/dL (9-23); Glucose 124 mg/dL (74-106)
[2024-06-02] MEDS ORDERED: DOXY100C79 PO (11:13)
[2024-06-02] MEDS ORDERED: AUG875T PO (11:13)
--- NOTE | 2024-06-02 13:50 | DVHDSRES ---
Discharge Summary Date of Admission Resident Creating Document: PATRICIA JARAMILLO RESIDENT May 27, 2024 at 22:12 Date of Discharge: Jun 02, 2024 Admitting Diagnosis Right in his figure swelling, chest pain and shortness of breaths Labs/Diagnostic Data: Laboratory Results Test 06/02/24 10:49 06/02/24 05:51 06/01/24 07:15 05/30/24 06:27 POC Glucose 156 mg/dl (70-106) White Blood Count 5.7 10^3/uL (4.4-10.8) Red Blood Count 3.30 10^6/uL (4.0-5.20) Hemoglobin 9.8 g/dL (12.2-16.2) Hematocrit 30.4 % (36.0-46.0) Mean Corpuscular Volume 92.2 fL (80.0-100.0) Mean Corpuscular Hemoglobin 29.8 pg (28.0-32.0) Mean Corpuscular Hemoglobin Concent 32.3 g/dL (32.0-36.0) Red Cell Distribution Width 14.7 % (11.8-14.3) Platelet Count 148 10^3/uL (140-450) Mean Platelet Volume 8.3 fL (6.9-10.8) Neutrophils (%) (Auto) 67.5 % (37.0-80.0) Lymphocytes (%) (Auto) 12.1 % (10.0-50.0) Monocytes (%) (Auto) 11.1 % (0.0-12.0) Eosinophils (%) (Auto) 7.9 % (0.0-7.0) Basophils (%) (Auto) 1.4 % (0.0-2.0) Neutrophils # (Auto) 3.9 10 ^3/uL (1.6-8.6) Lymphocytes # (Auto) 0.7 10 ^3/uL (0.4-5.4) Monocytes # (Auto) 0.6 10 ^3/uL (0-1.3) Eosinophils # (Auto) 0.4 10 ^3/uL (0-0.8) Basophils # (Auto) 0.1 10 ^3/uL (0-0.2) Nucleated Red Blood Cells 0.1 % Sodium Level 137 mmol/L (136-145) Potassium Level 4.8 mmol/L (3.5-5.1) Chloride Level 99 mmol/L (98-107) Carbon Dioxide Level 31 mmol/L (20-31) Anion Gap 7 (5-15) Blood Urea Nitrogen 32 mg/dL (9-23) Creatinine 5.72 mg/dL (0.550-1.02) Glomerular Filtration Rate Calc 8 mL/min (>90) BUN/Creatinine Ratio 5.6 (10.0-20.0) Serum Glucose 124 mg/dL (74-106) Calcium Level 8.8 mg/dL (8.7-10.4) Random Vancomycin Level 22.7 ug/mL (5-10) Phosphorus Level 7.3 mg/dL (2.4-5.1) Magnesium Level 2.5 mg/dL (1.6-2.6) Differential Total Cells Counted 100.0 (100) Neutrophils % (Manual) 78 (37.0-80.0) Band Neutrophils % (Manual) 4 Lymphocytes % (Manual) 14 (10.0-50.0) Monocytes % (Manual) 4 (0-12) Eosinophils % (Manual) 0 (0-7) Basophils % (Manual) 0 (0.0-2.0) Metamyelocytes % (manual) 0 Myelocytes % (Manual) 0 Promyelocytes % (Manual) 0 Blast Cells % (Manual) 0 Reactive Lymphocytes 0 Platelet Estimate Decreased Test 05/28/24 16:27 05/28/24 09:20 05/27/24 22:54 05/27/24 20:46 Hepatitis B Surface Antigen Negative (Negative) Total Bilirubin 0.2 mg/dL (0.2-1.0) Aspartate Amino Transferase (AST) < 8 U/L (13-40) Alanine Aminotransferase (ALT) 10 U/L (7-40) Alkaline Phosphatase 171 U/L (46-116) Total Protein 6.8 g/dL (5.7-8.2) Albumin 3.8 g/dL (3.2-4.8) Parathyroid Hormone (Intact) 1081.8 pg/mL (18.4-80.1) Prothrombin Time 11.2 sec (9.3-11.8) Prothrombin Time INR 1.06 (0.9-1.15) Activated Partial Thromboplast Time 35.7 SEC (24.5-34.5) Hemoglobin A1c 6.1 % A1C (<5.7) Vitamin B12 Level 669 pg/mL (211-911) Vitamin D 25-Hydroxy 17.8 ng/mL (30.0-100) Influenza Type A Antigen Negative (Negative) Influenza Type B Antigen Negative (Negative) SARS-CoV-2 Antigen (Rapid) Negative (NEGATIVE) Test 05/27/24 18:38 05/27/24 18:34 05/27/24 17:44 Troponin I High Sensitivity 17 ng/L (</=34) Thyroid Stimulating Hormone (TSH) 1.94 uIU/mL (0.55-4.78) Large Platelets Few B-Type Natriuretic Peptide 483.63 pg/mL (0-100) Other Laboratory Tests 06/02/24 05:51 Brief Hx & Hospital Course: Patient is 63 years old female with past medical history not limited to COPD on home oxygen [place] O2 3-4 liter/minute, ESRD on hemodialysis 3 times per week, Saturday, Saturday and Saturday, congestive heart failure, hypertension, paroxysmal atrial fibrillation on Eliquis, diabetes mellitus type 2, hypertension, rheumatoid arthritis, osteoporosis, chronic back pain came with a complaint of chest pain and shortness of breaths for 3 days. Patient patient woke up from sleep 3 days before and feeling weak and tired. She started having chest pain, central in nature, sharp, pressure-like, 10/10, radiating to the back at times, pain was intermittent in nature. Patient also had short of breath for the same duration which increased with exertion, relieved with rest and hemodialysis. Patient also endorsed feeling generalized weakness and wheezing for last 1 week. As per patient's patient's legs are chronically swollen. Patient also endorsed swelling of the right index finger that started 3-4 days back, painful, tender to touch. Per patient she missed her dialysis on last Saturday and Saturday as she was not feeling good, feeling tired. Patient denied any fever, palpitation, dizziness, change in vision, diarrhea. Echo 2D revealedNormal left ventricular size and dimension. Normal left ventricular systolic function estimated ejection fraction 55%. There is a grade one diastolic dysfunction. Normal right ventricular size and dimension. Normal left ventricular systolic function. Fzki-xs-lfmfdifpgd elevated right ventricular systolic pressure 40 mm of mercury Normal biatrial size and dimension. The aortic valve is mildly thickened and sclerotic. The mitral valve is thickened and sclerotic. There is mild tricuspid valve regurgitation. Patient was treated with antibiotic meropenem for right in a cellulitis, clinically improved. Patient was seen by orthopedic consult and Orthopedic recommended for conservative management, no surgical intervention needed. Patient also was seen by Nephrology and hemodialysis, pulmonary edema improved. Patient is being discharged home in hemodynamically stable condition. Patient is being prescribed Augmentin 875 mg p.o. b.i.d. for 7 days, doxycycline 100 mg p.o. b.i.d. for 7 days. 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 Patient's med was sent to the pharmacy electronically. PMH-COPD on home oxygen [place] O2 3-4 liter/minute, ESRD on hemodialysis 3 times per week, Saturday, Saturday and Saturday, congestive heart failure, hypertension, paroxysmal atrial fibrillation on Eliquis, diabetes mellitus type 2, hypertension, rheumatoid arthritis, osteoporosis, chronic back pain PSH- cholecystectomy, tonsillectomy Allergy- NKDA Personal History/ Social History- lives with daughter and mom, nonalcoholic, nonsmoker, no drug abuser as per patient Patient was seen today at the bedside. Patient feeling better today Cardiovascular- deny palpitation Respiratory- denies cough Gastrointestinal- denies any rectal bleeding, nausea or vomiting Musculoskeletal-denies acute joint swelling or tenderness or redness Neurological- denies acute dysarthria, dysphagia, change in vision Psychiatry- denies depression or SI or HI Skin- denies acute rash or purpura General examination- awake alert, , conversant HEENT- PEERLA, no acute nasal discharge Cardiovascular- S1-S2 audible, rate and rhythm regular, no murmur Respiratory-bilateral lung crackles+_ Gastrointestinal-nontender, bowel sound+. Nondistended Musculoskeletal-no acute joint swelling or tenderness or redness upper extremity and Lower extremity- lower extremity edema improved, right index redness and swelling has improved a lot. Neurological- cranial nerves intact, no acute dysarthria or dysphagia Psychiatry- denies depression or SI or HI Skin- no acute rash or purpura Operations or Procedures Signed PATIENT: LION JOHN AACCT: [id number] UNIT: [id number] : 1960 LOC: [facility] ROOM / BED: [facility]6T / B AGE / SEX: 63 / F ADM STATUS: ADM IN SERVICE 1118 ORDERING PHYSICIAN: PATRICIA JARAMILLO RESIDENT PROCEDURE(s): BLEAD - BiLat Low Ext Art Duplex REASON: B/L LEG EDEMAS, FEBLE PULSE ORDER NUMBER(s): [id number], ACCESSION NUMBER(s): [id number] BILATERAL Lower Extremity Arterial Duplex Date: 05/28/2024 01:35 PM Clinical History: B/L LEG EDEMAS, FEBLE PULSE Comparison: None Technique: Duplex Doppler evaluation including color Doppler and spectral/pulsed waveform analysis of the lower extremity arteries was performed. Finding: RIGHT: Peak systolic velocities are as follows: TAKER DOWN 113 cm/s Deep femoral 94 cm/s SFA proximal 92 cm/s SFA mid-portion 84 cm/s SFA distal 68 cm/s Popliteal 75 cm/s Posterior tibial 73 cm/s Anterior tibial 63 cm/s Dorsalis pedis 81 cm/s The waveforms are triphasic waveforms throughout. LEFT: Peak systolic velocities are as follows: TAKER DOWN 130 cm/s Deep femoral 110 cm/s SFA proximal 112 cm/s SFA mid-portion 98 cm/s SFA distal 90 cm/s Popliteal 116 cm/s Posterior tibial 79 cm/s Anterior tibial 69 cm/s Dorsalis pedis 98 cm/s The waveforms are triphasic and biphasic waveforms throughout.. REFERENCE VALUES, [facility]) vascular Imaging Lab Criteria: Peak systolic velocity ranges (in cm/sec) are as follows: <150 cm/s - <20 % stenosis 150-200 cm/s - 20-49% stenosis 200-300 cm/s - 50-75% stenosis >300 cm/s -> 75% stenosis IMPRESSION: 1. There is no evidence forperipheral vascular insufficiency in the right lower extremity. 2. There isno evidence forperipheral vascular insufficiency in the left lower extremity. 3. No significant focal stenosis is identified. ATED BY: CATHERINE NAQVI Jr., DO DICTATED DATE/TIME: 05/28/241604 SIGNED BY: CATHEIRNE NAQVI Jr., SIGNED DATE/TIME: 05/28/241604 CC: Diagnostic Imaging Report : [id number] Signed PATIENT: LION JOHN AACCT: [id number] UNIT: [id number] : 1960 LOC: TELE ROOM / BED: [address] [place] [address] AGE / SEX: 63 / F ADM STATUS: ADM IN SERVICE ORDERING PHYSICIAN: LYUBOV NINA PROCEDURE(s): RHNCT - CT R HAND WO CONTRAST REASON: Redness and swelling of the RIGHT index finger ORDER NUMBER(s): [id number], ACCESSION NUMBER(s): [id number] EXAM: CT CT R HAND WO CONTRAST HISTORY: Redness and swelling of the RIGHT index finger COMPARISON: None TECHNIQUE: Axial images were obtained of the right hand and reformatted in coronal and sagittal planes. All CT scans at this medical facility are performed using dose modulation techniques as appropriate to a performed exam including the following: Automated exposure control was utilized; adjustment of the MA and/or KV according to patient size; and use of iterative reconstruction technique. CT Dose: CTDI volume is 8 mGy. Dose-length product is 174 mGy*cm Findings/ IMPRESSION: No acute fracture or dislocation. No destructive osseous lesions. No significant degenerative changes. Mild soft tissue edema /inflammatory changes involving the 2nd digit. ATED BY: ENOCH MCDONALD DO DICTATED DATE/TIME: 05/27/242328 SIGNED BY: ENOCH MCDONALD DO SIGNED DATE/TIME: 05/27/242328 CC: Diagnostic Imaging Report : [id number] Signed PATIENT: LION JOHN AACCT: [id number] UNIT: [id number] : 1960 LOC: ER ROOM / BED: / AGE / SEX: 63 / F ADM STATUS: REG ER SERVICE 1629 ORDERING PHYSICIAN: DELANO HARTLEY MD PROCEDURE(s): CXRP - CHEST PORTABLE REASON: cp ORDER NUMBER(s): [id number], ACCESSION NUMBER(s): [id number] CHEST RADIOGRAPH Indication:cp Technique: Single frontal view of the chest was obtained Comparison: None FINDINGS: Lines and Tubes: None Lungs: Increased pulmonary vascular congestion and or interstitial disease is noted diffusely throughout both lung reyes. Pleura: No effusion. No pneumothorax. Cardiomediastinal contours: Is enlarged. Bones: No acute osseous abnormality. IMPRESSION: 1. Cardiomegaly with pulmonary findings either consistent with chronic pulmonary disease or congestive failure. There are no prior studies for comparison ATED BY: CATHERINE NAQVI Jr., DO DICTATED DATE/TIME: 05/27/241711 SIGNED BY: CATHERINE NAQVI Jr., SIGNED DATE/TIME: 05/27/241711 CC: Condition at Discharge: Stable Final Diagnosis/Problems List Acute on chronic hypoxic respiratory failure likely due to acute on chronic heart failure/acute exacerbation of COPD Cellulitis of the right index finger staining to the dorsum of hand Acute exacerbation of COPD acute on chronic Pulmonary edema likely due to ESRD, patient missed last 2 hemodialysis ESRD on hemodialysis PUD Pulmonary hypertension Hyperkalemia resolved Type 2 diabetes mellitus Acute exacerbation of CHF Bilateral leg edema likely due to ESRD/CHF History of paroxysmal atrial fibrillation with secondary hypercoagulable state Vitamin-D deficiency History of coronary artery disease Hyperphosphatemia Discharge Disposition: Home Discharge Instruct/Medications Diet: Renal Activity: No Restrictions, As Tolerated Follow Up/Referral: Please follow up with the PCP in 1 week Medications: Augmentin Discharge Statement: "Patient was advised to return to the ER or call 911 if any headaches, dizziness, shortness of breath, chest pain, abdominal pain, bleeding, fevers, or worsening of medical condition. Patient was counseled about treatment plan, medications, possible side effects, patientverbalized understanding. All questions were answered to the best of my ability. This discharge took greater then 30 minutes in planning, reviewing documentation, counseling the patient, and discussing with other team members." ASSESSMENT ASSESSMENT Assessment Acute on chronic hypoxic respiratory failure likely due to acute on chronic heart failure/acute exacerbation of COPD Cellulitis of the right index finger staining to the dorsum of hand Acute exacerbation of COPD acute on chronic Pulmonary edema likely due to ESRD, patient missed last 2 hemodialysis Acute exacerbation of CHF Bilateral leg edema likely due to ESRD/CHF Date of Service: Jun 02, 2024 Billing Provider: RADHA RIOS MD Common Visit Codes: 86659-QMW/[id number] DISCH DAY >30min PATRICIA JARAMILLO RESIDENT Jun 02, 2024 13:50 RADHA RIOS MD Jun 02, 2024 19:08
--- NOTE | 2024-06-02 18:28 | DVHPN2 ---
Progress Note Date Seen: Jun 02, 2024 Has the PT tested + for MRSA If YES, has PT been informed?: No Medical Necessity Reason Pt with a Central, PICC or Fol: No Subjective Patient reports: No new complaints Review of Systems: HEENT:Normal, CVS:Normal, RESPIRATORY:Normal, GI:Normal, :Normal, MSK:Abnormal, NEURO:Normal Objective vital signs Vital Sign Date Time Temp Pulse Resp B/P (MAP) Pulse Ox O2 Delivery O2 Flow Rate FiO2 06/02/24 16:42 98.1 71 14 121/45 (70) 96 98.1 06/02/24 14:14 Nasal Cannula 4.0 06/02/24 14:14 36 Total Intake and Output 06/01/24 06/01/24 06/02/24 15:00 23:00 07:00 Intake Total 1050 ml 300 ml Output Total 0 ml Balance 1050 ml 300 ml medications Current Medications Medications Dose Ordered Sig/Mirna Route Start Time Stop Time Status Last Admin Dose Admin Sodium Chloride 10 ml Q8HR IV 05/28/24 06:00 06/02/24 15:06 10 ML Acetaminophen 325 mg Q4HP PRN PO 05/27/24 22:15 Acetaminophen/ Hydrocodone Bitart 1 tab Q4HP PRN PO 05/27/24 22:15 06/02/24 15:12 1 TAB Ondansetron HCl 4 mg Q4HP PRN IV 05/27/24 22:15 06/01/24 17:08 4 MG Aspirin 81 mg DAILY PO 05/28/24 10:00 06/02/24 10:35 81 MG Atorvastatin Calcium 20 mg DAILY PO 05/28/24 10:00 06/02/24 10:35 20 MG Carvedilol 6.25 mg BIDWM PO 05/28/24 08:00 06/02/24 10:35 6.25 MG Albuterol 2.5 mg Q4HR NEB 05/28/24 02:00 06/02/24 14:14 2.5 MG Ipratropium [place] 0.5 mg Q4HR NEB 05/28/24 02:00 06/02/24 14:14 0.5 MG Vancomycin HCl 0 ml @ 0 mls/hr UD IV 05/27/24 22:45 Diagnostic Test (Pha) 1 strip ACHS 05/28/24 07:00 06/02/24 17:23 1 STRIP Insulin Human Regular ACHS SC 05/28/24 07:00 06/02/24 17:24 3 UNITS Dextrose 50 ml UD PRN IV 05/28/24 03:30 Ergocalciferol 50,000 unit Q7D PO 05/28/24 03:30 05/30/24 10:56 50,000 UNIT Sevelamer HCl 800 mg TIDWM PO 05/28/24 12:00 06/02/24 12:16 800 MG Apixaban 5 mg BID PO 05/28/24 22:00 06/02/24 10:35 5 MG Hydralazine HCl 10 mg Q6HP PRN IV 05/28/24 21:15 06/01/24 21:45 10 MG Meropenem 50 ml @ 17 mls/hr DAILY IV 05/29/24 15:00 06/02/24 10:43 17 MLS/HR Gabapentin 100 mg BID PO 05/29/24 22:00 06/02/24 10:34 100 MG Losartan Potassium 50 mg DAILY PO 05/30/24 10:00 06/02/24 10:35 50 MG Morphine Sulfate 2 mg Q6HR PRN IV 05/30/24 09:30 06/01/24 21:47 2 MG Pantoprazole Sodium 40 mg DAILY@0600 PO 05/30/24 09:30 06/02/24 06:00 40 MG Calcium Carbonate 500 mg TIDWM PO 05/30/24 12:00 06/02/24 12:16 500 MG Sildenafil Citrate 20 mg DAILY PO 06/01/24 10:00 06/02/24 10:34 20 MG Examination: GENERAL:Normal, HEENT:Normal, NECK:Normal, LUNGS:Normal, CVS:Normal, ABDOMEN:Normal, MSK:Abnormal, SKIN:Normal, NEURO:Normal, :Normal laboratory and microbiology Laboratory Tests 06/02/24 05:51 Test 06/02/24 05:51 Range/Units Serum Glucose 124 H 74-106 mg/dL Problem List/Assessment/Plan Problem List/Assessment/Plan Assessment and plan # ESRD on hemodialysis # Hyperkalemia # hyperphosphatemia Cellulitis of the right index finger -acute on chronic congestive heart failure ? HFpEF # paroxysmal atrial fibrillation # COPD on home oxygen 3-5 L # type 2 diabetes mellitus, hemoglobin A1c 6.1% # vitamin-D deficiency recs ABX HD tomorrow outpatient access eval Plan discussed with: Patient Dietary Evaluation Review Comments: 1) Continue currrent plan of care Expected Outcomes/Goals: F/U in 3-5 days GUERO CHILDRESS MD Jun 02, 2024 18:28
== END 2024-06-02 18:40 | disposition home or self-care (01) | DRG 640 ==
LOC: ER 16:24 → EDBD 16:24 → TELE 22:12 → TELE-WESTW 23:50
PROVIDERS: ADMIT Internal Medicine Geriatric Medicine; ATTEND Internal Medicine Geriatric Medicine
PROC: 5A1D70Z Performance of Urinary Filtration, Intermittent, Less than 6 Hours Per Day (ICD-10-PCS; principal; 2024-05-28)
PROC: 5A1D70Z Performance of Urinary Filtration, Intermittent, Less than 6 Hours Per Day (ICD-10-PCS; 2024-05-29)
PROC: 5A1D70Z Performance of Urinary Filtration, Intermittent, Less than 6 Hours Per Day (ICD-10-PCS; 2024-06-01)
DX: E87.5 Hyperkalemia (principal); I50.33 Acute on chronic diastolic (congestive) heart failure; J96.21 Acute and chronic respiratory failure with hypoxia; N18.6 End stage renal disease; I13.2 Hypertensive heart and chronic kidney disease with heart failure and with stage 5 chronic kidney disease, or end stage renal disease; D68.69 Other thrombophilia; J44.1 Chronic obstructive pulmonary disease with (acute) exacerbation; I25.110 Atherosclerotic heart disease of native coronary artery with unstable angina pectoris; E87.70 Fluid overload, unspecified; E11.22 Type 2 diabetes mellitus with diabetic chronic kidney disease; Z20.822 Contact with and (suspected) exposure to COVID-19; L03.011 Cellulitis of right finger; I48.0 Paroxysmal atrial fibrillation; E55.9 Vitamin D deficiency, unspecified; M06.9 Rheumatoid arthritis, unspecified; M81.0 Age-related osteoporosis without current pathological fracture; I27.20 Pulmonary hypertension, unspecified; K27.9 Peptic ulcer, site unspecified, unspecified as acute or chronic, without hemorrhage or perforation; Z83.3 Family history of diabetes mellitus; Z79.01 Long term (current) use of anticoagulants; Z99.2 Dependence on renal dialysis; Z90.49 Acquired absence of other specified parts of digestive tract; Z82.62 Family history of osteoporosis; Z99.81 Dependence on supplemental oxygen; Z79.4 Long term (current) use of insulin
CPT/HCPCS: 36415; 71045; 73200; 80048; 80053; 80202; 82306; 82607; 82962; 83036; 83735; 83880; 83970; 84100; 84443; 84484; 85007; 85025; 85027; 85610; 85730; 87340; 87426; 87804; 90935; 93306; 93925; 94640; 96365; 96367; 99291; G0378; J1642; J1815; J2185; J2405; J2470; J7060